=== PATIENT | female | born 1985 | race Caucasian/White ===

== ENCOUNTER 2018-08-30 14:39 | Emergency (ER) | payer MEDICAID ==
[~2018-08-30] VITALS: Ht 162.6 cm; Wt 59.0 kg
[2018-08-30 15:29] LABS: BASOPHILS # (AUTO) 0.1 10^3/uL (0.0-0.1); BASOPHILS % (AUTO) 1 % (0-10); EOSINOPHILS # (AUTO) 0.4 10^3/uL (0.0-0.3); EOSINOPHILS % (AUTO) 3 % (0-10); HEMATOCRIT 43 % (35-52); HEMOGLOBIN 15.3 G/DL (11.5-16.0); LYMPHOCYTES # (AUTO) 2.3 X 10^3 (1.0-4.0); LYMPHOCYTES % (AUTO) 18 % (12-44); MEAN CORPUSCULAR HEMOGLOBIN 30 PG (25-34); MEAN CORPUSCULAR HGB CONC 36 G/DL (32-36); MEAN CORPUSCULAR VOLUME 85 FL (80-99); MEAN PLATELET VOLUME 9.6 FL (7.4-10.4); MONOCYTES # (AUTO) 1.3 X 10^3 (0.0-1.0); MONOCYTES % (AUTO) 10 % (0-12); NEUTROPHILS # (AUTO) 8.6 X 10^3 (1.8-7.8); NEUTROPHILS % (AUTO) 68 % (42-75); PLATELET COUNT 463 10^3/uL (130-400); RED CELL DISTRIBUTION WIDTH 14.8 % (10.0-14.5); WHITE BLOOD COUNT 12.6 10^3/uL (4.3-11.0)
[2018-08-30 15:51] LABS: ALANINE AMINOTRANSFERASE 61 U/L (0-55); ALBUMIN 4.5 GM/DL (3.2-4.5); ALKALINE PHOSPHATASE 89 U/L (40-136); BILIRUBIN,TOTAL 0.5 MG/DL (0.1-1.0); BUN/CREATININE RATIO 13; CALCIUM 10.5 MG/DL (8.5-10.1); CARBON DIOXIDE 21 MMOL/L (21-32); CHLORIDE 103 MMOL/L (98-107); GFR ESTIMATED > 60; GLUCOSE 119 MG/DL (70-105); POTASSIUM 3.9 MMOL/L (3.6-5.0); SODIUM 138 MMOL/L (135-145); TOTAL PROTEIN 8.1 GM/DL (6.4-8.2)
[2018-08-30] MEDS ORDERED: GLUCAGON EMERGENCY 1 MG/KIT IV ONE (16:00)
[2018-08-30] MEDS ORDERED: METOCLOPRAMIDE INJ 10 MG/2 ML (REGLAN) IVP ONE (16:00)
[2018-08-30] MEDS ORDERED: fentaNYL INJECTION 100 MCG/2 ML AMP IVP ONE (16:00)
--- NOTE | 2018-08-30 17:05 | ED GI ---
General Chief Complaint: Foreign Body Stated Complaint: PIECE OF STEAK STUCK IN THROAT Nursing Triage Note: STATES SHE HAS A PIECE OF STEAK STUCK IN HER THROAT SINCE NOON. Sepsis Screen: No Definite Risk Source of Information: Patient Exam Limitations: No Limitations History of Present Illness Date Seen by Provider: August 30, 2018 Time Seen by Provider: 15:50 Initial Comments 33-year-old female who presents to the emergency room with complaints of a piece of steak stuck in her throat while eating lunch. She reports that she's had this happen from time to time due to having uwqfj-cibqxp-aafk disease. She reports that she has a history of leukemia is in remission. Timing/Duration: 1-3 Hours Associated Symptoms: Denies Symptoms Allergies and Home Medications Allergies Uncoded Allergies: CHEMO MEDS (Allergy, Unknown, 08/30/18) Patient Home Medication List Home Medication List Reviewed: Yes Review of Systems Review of Systems Constitutional: see HPI; No chills, No fever Gastrointestinal: See HPI, Other (piece of steak stuck in throat.) All Other Systems Reviewed Negative Unless Noted: Yes Past Surjyek-Qljlhm-Hibtdf Hx Past Med/Social Hx: Reviewed Nursing Past Med/Soc Hx Patient Social History Alcohol Use: Denies Use Recreational Drug Use: No Smoking Status: Never a Smoker Recent Foreign Travel: No Contact w/Someone Who Travel: No Recent Infectious Disease Expo: No Past Medical History Surgeries: Yes (BREAST) Respiratory: Yes Cardiac: Yes Hypertension, Irregular Heartbeat Neurological: No Genitourinary: No Gastrointestinal: No Musculoskeletal: Yes Foot Drop, Contracture Endocrine: No Cancer: Yes Leukemia Psychosocial: Yes Sleep Difficulties, Anxiety, Depression Family Medical History Reviewed Nursing Family Hx Physical Exam Vital Signs Vital Signs - First Documented 08/30/18 15:05 Pulse 132 Resp 18 B/P (MAP) 165/83 (110) Pulse Ox 94 O2 Delivery Room Air Capillary Refill : Less Than 3 Seconds Height/Weight/BMI Height: 5'4.00" Weight: 130lbs. oz. 58.743767us; BMI Method:Stated General Appearance: WD/WN, no apparent distress Respiratory: chest non-tender, lungs clear, normal breath sounds, no respiratory distress, no accessory muscle use Cardiovascular: normal peripheral pulses, regular rate, rhythm, no edema, no gallop, no JVD, no murmur Gastrointestinal: normal bowel sounds, non tender, soft, no organomegaly, no pulsatile mass Extremities: normal capillary refill Neurologic/Psychiatric: alert, normal mood/affect, oriented x 3 Skin: normal color, warm/dry Progress/Results/Core Measures Results/Orders Lab Results Laboratory Tests Test 08/30/18 15:20 Range/Units White Blood Count 12.6 H 4.3-11.0 10^3/uL Red Blood Count 5.09 4.35-5.85 10^6/uL Hemoglobin 15.3 11.5-16.0 G/DL Hematocrit 43 35-52 % Mean Corpuscular Volume 85 80-99 FL Mean Corpuscular Hemoglobin 30 25-34 PG Mean Corpuscular Hemoglobin Concent 36 32-36 G/DL Red Cell Distribution Width 14.8 H 10.0-14.5 % Platelet Count 463 H 130-400 10^3/uL Mean Platelet Volume 9.6 7.4-10.4 FL Neutrophils (%) (Auto) 68 42-75 % Lymphocytes (%) (Auto) 18 12-44 % Monocytes (%) (Auto) 10 0-12 % Eosinophils (%) (Auto) 3 0-10 % Basophils (%) (Auto) 1 0-10 % Neutrophils # (Auto) 8.6 H 1.8-7.8 X 10^3 Lymphocytes # (Auto) 2.3 1.0-4.0 X 10^3 Monocytes # (Auto) 1.3 H 0.0-1.0 X 10^3 Eosinophils # (Auto) 0.4 H 0.0-0.3 10^3/uL Basophils # (Auto) 0.1 0.0-0.1 10^3/uL Sodium Level 138 135-145 MMOL/L Potassium Level 3.9 3.6-5.0 MMOL/L Chloride Level 103 98-107 MMOL/L Carbon Dioxide Level 21 21-32 MMOL/L Anion Gap 14 5-14 MMOL/L Blood Urea Nitrogen 8 7-18 MG/DL Creatinine 0.60 0.60-1.30 MG/DL Estimat Glomerular Filtration Rate > 60 BUN/Creatinine Ratio 13 Glucose Level 119 H 70-105 MG/DL Calcium Level 10.5 H 8.5-10.1 MG/DL Corrected Calcium 10.1 8.5-10.1 MG/DL Total Bilirubin 0.5 0.1-1.0 MG/DL Aspartate Amino Transf (AST/SGOT) 44 H 5-34 U/L Alanine Aminotransferase (ALT/SGPT) 61 H 0-55 U/L Alkaline Phosphatase 89 40-136 U/L Total Protein 8.1 6.4-8.2 GM/DL Albumin 4.5 3.2-4.5 GM/DL My Orders Orders - PHILLY BOBO Comprehensive Metabolic Panel (08/30/18 15:22) Ed Iv/Invasive Line Start (08/30/18 15:22) Cbc With Automated Diff (08/30/18 15:22) Fentanyl Injection (Sublimaze Injection (08/30/18 16:00) Metoclopramide Injection (Reglan Injecti (08/30/18 16:00) Glucagon Emergency Kit (Glucagon Emergen (08/30/18 16:00) Iv Push Certified Surgical Assistant Ed (08/30/18 ) Medications Given in ED Vital Signs/I&O 08/30/18 08/30/18 15:05 17:08 Pulse 132 133 Resp 18 18 B/P (MAP) 165/83 (110) 136/101 (113) Pulse Ox 94 93 O2 Delivery Room Air Room Air Blood Pressure Mean: 110 Progress Progress Note : Time: 17:04 Progress Note I have seen and evaluated the patient. The patient's food bolus went down after medication administration. She agrees with plan of care, plans for discharge, return precautions were given. Departure Impression Primary Impression: Foreign body in esophagus Disposition: 01 HOME, SELF-CARE Condition: Stable/Unchanged Departure-Patient Inst. Decision time for Depature: 17:04 Referrals: NO,LOCAL PHYSICIAN (PCP/Family) Primary Care Physician Patient Instructions: Foreign Body, Swallowed, Adult Add. Discharge Instructions: Be sure to cut her food up very small and shoe appropriately. Follow-up with her primary care provider as needed. Return back to the emergency room for worsening symptoms or concerns as needed. All discharge instructions reviewed with patient and/or family. Voiced understanding. PHILLY BOBO August 30, 2018 17:05
[2018-08-30 17:08] VITALS: BP 136/101
--- NOTE | 2018-08-30 17:08 | NUR ---
HR 133 ON DISCHARGE PATIENT AND MOTHER REPORT THAT IS NORMAL FOR HER. AND WAS B/P WAS 136/101 PATIENT REPORTS THAT IS GOOD FOR HER. DID TAKE HER B/P MEDS TODAY.
== END 2018-08-30 17:12 | disposition home or self-care (01) ==
LOC: EDUNIT# 14:39 → ER 14:41
DX: T18.108A Unspecified foreign body in esophagus causing other injury, initial encounter (principal); I10 Essential (primary) hypertension; F41.9 Anxiety disorder, unspecified; F32.9 Major depressive disorder, single episode, unspecified; Z85.6 Personal history of leukemia; Z88.8 Allergy status to other drugs, medicaments and biological substances
CPT/HCPCS: 36415; 80053; 85025

== ENCOUNTER → 2018-08-30 | Emergency (ER) | payer MEDICAID, OTHER ==
[~2018-08-30] VITALS: Ht 162.6 cm; Wt 59.0 kg
[~2018-08-30] MED LIST: GLUCAGON EMERGENCY 1 MG/KIT IV ONE; NS IV 1000 ML 1,000 ML IV STA
--- NOTE | 2018-08-30 13:36 | NUR ---
unable to assess complete patient history d/t partial airway obstruction by piece of steak lodged in throat.
--- NOTE | 2018-08-30 13:46 | ED General ---
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 She did not spit out the food, she feels like it is still stuck in the back of her throat. She says that she cannot even swallow saliva although she is swallowing saliva during history taking and exam. Her family members are with her, they said that they did not have to do the Heimlich maneuver because she was still moving some air, they were slapping her on her back however. Patient denies additional symptoms. Allergies and Home Medications Allergies Coded Allergies: No Known Drug Allergies (Unverified , 08/30/18) Patient Home Medication List Home Medication List Reviewed: Yes Review of Systems Review of Systems Constitutional: no symptoms reported EENTM: see HPI Respiratory: see HPI Cardiovascular: no symptoms reported Gastrointestinal: no symptoms reported Genitourinary: no symptoms reported Musculoskeletal: no symptoms reported Skin: no symptoms reported Psychiatric/Neurological: No Symptoms Reported Hematologic/Lymphatic: No Symptoms Reported Immunological/Allergic: no symptoms reported Past Rdrxjar-Vnqfby-Nroyha Hx Past Med/Social Hx: Reviewed Nursing Past Med/Soc Hx Patient Social History Recent Foreign Travel: No Contact w/Someone Who Travel: No Physical Exam Vital Signs Capillary Refill : Height, Weight, BMI Height: '" Weight: lbs. oz. kg; BMI Method: General Appearance: No Apparent Distress (sitting in bed, speaking in full sentences, no drooling, no stridor, no respiratory accessory muscle use) HEENT: Pharynx Normal (no foreign body is visualized using a tongue depressor) Neck: Supple Respiratory: Lungs Clear Cardiovascular: Regular Rate, Rhythm Gastrointestinal: Non Tender, Soft Extremity: Other (chronic sclerosing skin changes are noted) Neurologic/Psychiatric: Alert, Other (normal speech) Skin: Warm/Dry Progress/Results/Core Measures Suspected Sepsis SIRS Temperature: Pulse: Respiratory Rate: Blood Pressure / Mean: Results/Orders My Orders Orders - CJ HUMPHREY DO Glucagon Emergency Kit (Glucagon Emergen (08/30/18 14:00) Ns Iv 1000 Ml (Sodium Chloride 0.9%) (08/30/18 13:47) Vital Signs/I&O Capillary Refill : Departure Impression Primary Impression: Choking episode Additional Impression: Obstruction of upper airway due to foreign body Qualified Codes: T17.908A - Unspecified foreign body in respiratory tract, part unspecified causing other injury, initial encounter Disposition: 07 AGAINST MEDICAL ADVICE Condition: Against Medical Advice Departure-Patient Inst. Referrals: NO,LOCAL PHYSICIAN (PCP) Primary Care Physician CJ HUMPHREY DO August 30, 2018 13:46
[2018-08-30 13:50] VITALS: BP 144/100
--- NOTE | 2018-08-30 13:50 | NUR ---
patient demanding to leave at this time, medication list returned to patient per her request prior to copy. unable to update medication list.
--- NOTE | 2018-08-30 13:50 | NUR ---
Entered patient room to irene Eduardo RN for phone call regarding another patient care need. Upon entering room Dr Thomas is in middle of explaining to patient the plan/recommended treatment plan of need to try Glucagon as a course of action here to attempt to make resolution of trying to smooth/relax GI muscle to get the passage of food bolus but would also contact to arrange the back up plan which is place patient in ambulance to [place] where the General surgeon would assess her GI status and could intervene with food bolus removal in Endoscopy. Pt continues to have raised voice with with her mother also intervening reporting "With the prior hospital closure and us not knowing what this place is we could assume you would not have any capability to manage this." explains again that he is making the appropriate "ER" plan as he can not go down pt's throat to retrieve a food bolus that is why shipping pt is being proposed as refusal of Glucagon continued. Pt then became very upset taking off her monitors and sitting up stating " That is it, I am leaving now and going to a real hospital." "I asked for the Valium that always works usually and I will get in a car and be driven elsewhere if it didn't." removes self from room stating they do not understand he is making the plan but he will not not give Valium IV to a possible compromised patient airway and then let them get up and leave not on an ambulance with no medical staff to monitor the airway. He states, "You could not being properly monitored." This RN running for AMA and refusal of Tx form as said to pt if you want to just leave not acepting the treatment plan then sign these forms if you are going to leave. Pt was already standing in room requesting for her medication list that her family does not have. List at desk obtained and returned to patient. Pt and family were asked to please go to registration desk to sign out on leaving. AMA and Refusal of Treatment plan signed. Noted pt and family departing ER they bypassed registration.
--- NOTE | 2018-08-30 13:50 | NUR ---
patient arrived at 1336 staing she had choked on a piece of steak. after origional assessment done by Dr Thomas orders were placed for IV start labs and glucogon to be given. after dr left room patient started asking this RN why Dr would give glucogon, that is for blood sugar? this RN explained glucogon would relax the smooth muscle tissue. patient states pain medication was the only thing that had ever worked before and that she is a hard stick and does not want to be stuck and treated with something that is not guarenteed to work and she will just go somewhere else. this RN told the patient and her family i would go get the Dr so they could voice their concerns. Dr Thomas comes to the room and asks the patient what her concerns are, patient repeats her concerns she had voiced to this RN and Dr Thomas explains again the glucogon is the safest treatment and then we can get you transferred to [place] where there is a GI DR and explains it would be unsafe for him to give her a pain medication to relax her with a partial airway obstruction, at this point the patient stops Dr and says no its valium, they always gave me valium in the past. then states Valium would be sedating and not safe with a partial airway obstruction especially if you are saying you dont want to be transferred via ambulance. patient then states she wants the valium and has been through this before and it is the only thing that will work, and then i will leave and have my mom drive me to [place] to see the GI specialist. again Dr Dhaliwal explains it is unsafe to give the sedating medication with a partial airway obstruction and his preferred treatment would be glucogon and an transfer to [place] via ambulance.
== END | disposition left against medical advice (07) ==
LOC: ER FS 13:36
DX: T17.908A Unspecified foreign body in respiratory tract, part unspecified causing other injury, initial encounter (principal); Z85.6 Personal history of leukemia; Z94.81 Bone marrow transplant status
CPT/HCPCS: 99282

== ENCOUNTER 2018-11-16 18:52 | Emergency (ER) | payer MEDICAID ==
[~2018-11-16] VITALS: Ht 162.6 cm; Wt 58.1 kg
--- OUTSIDE RECORDS SUMMARY | 2018-11-16 18:57 | XMS REPORT | Continuity of Care Document ---
Author Organization Unknown Address Unknown Phone Unavailable Allergies Active Description Code Type Severity Reaction Onset Reported/Identified Relationship to Patient Clinical Status Yes CHEMO MEDS CHEMO MEDS Unknown N/A 08/30/2018 Yes No Known Drug Allergies [id number] Drug Allergy Unknown N/A 08/30/2018 Medications There is no data. Problems Date Dx Coded Attending Type Code Diagnosis Diagnosed By 08/30/2018 PHILLY BOBO Ot F32.9 MAJOR DEPRESSIVE DISORDER, SINGLE EPISOD 08/30/2018 PHILLY BOBO Ot F41.9 ANXIETY DISORDER, UNSPECIFIED 08/30/2018 PHILLY BOBO Ot I10 ESSENTIAL (PRIMARY) HYPERTENSION 08/30/2018 PHILLY BOBO Ot T18.108A UNSP FOREIGN BODY IN ESOPHAGUS CAUSING O 08/30/2018 PHILLY BOBO Ot Z85.6 PERSONAL HISTORY OF LEUKEMIA 08/30/2018 PHILLY BOBO Ot Z88.8 ALLERGY STATUS TO OTH DRUG/MEDS/BIOL SUB 09/02/2018 PHILLY BOBO Ot F32.9 MAJOR DEPRESSIVE DISORDER, SINGLE EPISOD 09/02/2018 PHILLY BOBO Ot F41.9 ANXIETY DISORDER, UNSPECIFIED 09/02/2018 PHILLY BOBO Ot I10 ESSENTIAL (PRIMARY) HYPERTENSION 09/02/2018 PHILLY BOBO Ot T18.108A UNSP FOREIGN BODY IN ESOPHAGUS CAUSING O 09/02/2018 PHILLY BOBO Ot Z85.6 PERSONAL HISTORY OF LEUKEMIA 09/02/2018 PHILLY BOBO Ot Z88.8 ALLERGY STATUS TO OTH DRUG/MEDS/BIOL SUB 09/17/2018 CJ HUMPHREY DO T Ot T17.908A UNSP FB IN RESP TRACT, PART UNSP CAUSING 09/17/2018 CJ HUMPHREY DO T Ot Z85.6 PERSONAL HISTORY OF LEUKEMIA 09/17/2018 CJ HUMPHREY DO Ot Z94.81 BONE MARROW TRANSPLANT STATUS Procedures There is no data. Results Test Result Range Complete blood count (CBC) with automated white blood cell (WBC) differential - 08/30/18 15:20 Blood leukocytes automated count (number/volume) 12.6 10*3/uL 4.3-11.0 Blood erythrocytes automated count (number/volume) 5.09 10*6/uL 4.35-5.85 Venous blood hemoglobin measurement (mass/volume) 15.3 g/dL 11.5-16.0 Blood hematocrit (volume fraction) 43 % 35-52 Automated erythrocyte mean corpuscular volume 85 [foz_us] 80-99 Automated erythrocyte mean corpuscular hemoglobin (mass per erythrocyte) 30 pg 25-34 Automated erythrocyte mean corpuscular hemoglobin concentration measurement (mass/volume) 36 g/dL 32-36 Automated erythrocyte distribution width ratio 14.8 % 10.0- 14.5 Automated blood platelet count (count/volume) 463 10*3/uL 130-400 Automated blood platelet mean volume measurement 9.6 [foz_us] 7.4-10.4 Automated blood neutrophils/100 leukocytes 68 % 42-75 Automated blood lymphocytes/100 leukocytes 18 % 12-44 Blood monocytes/100 leukocytes 10 % 0-12 Automated blood eosinophils/100 leukocytes 3 % 0-10 Automated blood basophils/100 leukocytes 1 % 0-10 Blood neutrophils automated count (number/volume) 8.6 10*3 1.8-7.8 Blood lymphocytes automated count (number/volume) 2.3 10*3 1.0-4.0 Blood monocytes automated count (number/volume) 1.3 10*3 0.0- 1.0 Automated eosinophil count 0.4 10*3/uL 0.0-0.3 Automated blood basophil count (count/volume) 0.1 10*3/uL 0.0-0.1 Comprehensive metabolic panel - 08/30/18 15:20 Serum or plasma sodium measurement (moles/volume) 138 mmol/L 135-145 Serum or plasma potassium measurement (moles/volume) 3.9 mmol/L 3.6-5.0 Serum or plasma chloride measurement (moles/volume) 103 mmol/L 98-107 Carbon dioxide 21 mmol/L 21-32 Serum or plasma anion gap determination (moles/volume) 14 mmol/L 5-14 Serum or plasma urea nitrogen measurement (mass/volume) 8 mg/dL 7-18 Serum or plasma creatinine measurement (mass/volume) 0.60 mg/dL 0.60-1.30 Serum or plasma urea nitrogen/creatinine mass ratio 13 NRG Serum or plasma creatinine measurement with calculation of estimated glomerular filtration rate > NRG Serum or plasma glucose measurement (mass/volume) 119 mg/dL 70-105 Serum or plasma calcium measurement (mass/volume) 10.5 mg/dL 8.5-10.1 Serum or plasma total bilirubin measurement (mass/volume) 0.5 mg/dL 0.1-1.0 Serum or plasma alkaline phosphatase measurement (enzymatic activity/volume) 89 U/L 40-136 Serum or plasma aspartate aminotransferase measurement (enzymatic activity/volume) 44 U/L 5-34 Serum or plasma alanine aminotransferase measurement (enzymatic activity/volume) 61 U/L 0-55 Serum or plasma protein measurement (mass/volume) 8.1 g/dL 6.4-8.2 Serum or plasma albumin measurement (mass/volume) 4.5 g/dL 3.2-4.5 CALCIUM CORRECTED 10.1 mg/dL 8.5-10.1 Encounters ACCT No. Visit Date/Time Discharge Status Pt. Type Provider Facility Loc./Unit Complaint [id number] 08/30/2018 14:41:00 08/30/2018 17:12:00 DIS Emergency JIHANANANDIS [facility] ER PIECE OF STEAK STUCK IN THROAT [id number] 08/30/2018 13:36:00 08/30/2018 13:50:00 DIS Emergency CJ HUMPHREY DO [facility] ER FS CHOKING [id number] 11/16/2018 18:53:00 ACT Emergency STAR HOLBROOK DO [facility] ER FS HIGH BP, CHEST PAIN, SOB
--- NOTE | 2018-11-16 19:12 | ED Chest Pain ---
General Stated Complaint: HIGH BP, CHEST PAIN, SOB Source: patient, RN notes reviewed Exam Limitations: no limitations History of Present Illness Date Seen by Provider: Nov 16, 2018 Time Seen by Provider: 19:12 Initial Comments Patient presents c/ c/o chest pain, ROOT, and KING today. Reports being under a great deal of stress secondary to the recent of her Mother. Rates her KING @ 5/10. It is generalized. Describes her chest discomfort as burning. Denies any associated N/V. or diaphoresis. Does feel SOA c/ exertion. Timing/Duration: 24 hours, constant Severity/Quality: moderate, burning Location: substernal Radiation: no radiation Activities at Onset: emotional stress Prior CP/Workup: no prior chest pain Modifying Factors: worse with exercise; improves with rest ASA po CHILD CARE ASSOCIATE TEACHER: No NTG SL CHILD CARE ASSOCIATE TEACHER: No Associated Symptoms: denies symptoms (x/ as noted.), headache (generalized), shortness of breath (c/ exertion) Allergies and Home Medications Allergies Uncoded Allergies: CHEMO MEDS (Allergy, Unknown, 08/30/18) Home Medications Labetalol HCl 100 Mg Tablet, 100 MG PO BID Prescribed by: STAR HOLBROOK on 11/16/182039 Patient Home Medication List Home Medication List Reviewed: Yes Review of Systems Review of Systems Constitutional: see HPI Respiratory: See HPI, SOA With Exertion Cardiovascular: See HPI, Chest Pain Psychiatric/Neurological: See HPI, Headache, Other (increased stress) All Other Systems Reviewed Negative Unless Noted: Yes (Negative excepted noted.) Past Ablddtv-Pdiuii-Rgpgps Hx Patient Social History Recent Foreign Travel: No Contact w/Someone Who Travel: No Past Medical History Surgeries: Yes (BREAST) Respiratory: Yes Cardiac: Yes Hypertension, Irregular Heartbeat Neurological: No Genitourinary: No Gastrointestinal: No Musculoskeletal: Yes Foot Drop, Contracture Endocrine: No Cancer: Yes Leukemia Psychosocial: Yes Sleep Difficulties, Anxiety, Depression Physical Exam Vital Signs Vital Signs - First Documented 11/16/18 18:55 Temp 98.3 Pulse 124 Resp 26 B/P (MAP) 185/100 (128) Pulse Ox 95 O2 Delivery Room Air Capillary Refill : Height, Weight, BMI Height: 5'4.00" Weight: 130lbs. oz. 58.009035yx; BMI Method:Stated General Appearance: No Apparent Distress, WD/WN Respiratory: No Respiratory Distress Cardiovascular: Tachycardia Rectal: Deferred Neurologic/Psychiatric: Alert, Oriented x3, Depressed Affect Skin: Warm/Dry Progress/Results/Core Measures Results/Orders Lab Results Laboratory Tests Test 11/16/18 19:05 11/16/18 19:25 Range/Units White Blood Count 11.6 H 4.3-11.0 10^3/uL Red Blood Count 5.41 4.35-5.85 10^6/uL Hemoglobin 15.9 11.5-16.0 G/DL Hematocrit 48 35-52 % Mean Corpuscular Volume 89 80-99 FL Mean Corpuscular Hemoglobin 29 25-34 PG Mean Corpuscular Hemoglobin Concent 33 32-36 G/DL Red Cell Distribution Width 13.3 10.0-14.5 % Platelet Count 464 H 130-400 10^3/uL Mean Platelet Volume 9.4 7.4-10.4 FL Neutrophils (%) (Auto) 48 42-75 % Lymphocytes (%) (Auto) 34 12-44 % Monocytes (%) (Auto) 13 H 0-12 % Eosinophils (%) (Auto) 4 0-10 % Basophils (%) (Auto) 1 0-10 % Neutrophils # (Auto) 5.6 1.8-7.8 X 10^3 Lymphocytes # (Auto) 3.9 1.0-4.0 X 10^3 Monocytes # (Auto) 1.5 H 0.0-1.0 X 10^3 Eosinophils # (Auto) 0.5 H 0.0-0.3 10^3/uL Basophils # (Auto) 0.1 0.0-0.1 10^3/uL D-Dimer 0.43 0.00-0.49 UG/ML Sodium Level 136 135-145 MMOL/L Potassium Level 3.8 3.6-5.0 MMOL/L Chloride Level 96 L 98-107 MMOL/L Carbon Dioxide Level 22 21-32 MMOL/L Anion Gap 18 H 5-14 MMOL/L Blood Urea Nitrogen 8 7-18 MG/DL Creatinine 0.33 L 0.60-1.30 MG/DL Estimat Glomerular Filtration Rate > 60 BUN/Creatinine Ratio 24 Glucose Level 148 H 70-105 MG/DL Calcium Level 10.0 8.5-10.1 MG/DL Corrected Calcium 9.8 8.5-10.1 MG/DL Magnesium Level 2.0 1.8-2.4 MG/DL Total Bilirubin 0.4 0.1-1.0 MG/DL Aspartate Amino Transf (AST/SGOT) 40 H 5-34 U/L Alanine Aminotransferase (ALT/SGPT) 45 0-55 U/L Alkaline Phosphatase 93 40-136 U/L Troponin I < 0.30 <0.30 NG/ML Pro-B-Type Natriuretic Peptide 43.2 <75.0 PG/ML Total Protein 7.9 6.4-8.2 GM/DL Albumin 4.2 3.2-4.5 GM/DL Lipase 14 8-78 U/L Urine Color YELLOW Urine Clarity CLEAR Urine pH 7.0 5-9 Urine Specific Strang <1.005 1.016-1.022 Urine Protein NEGATIVE NEGATIVE Urine Glucose (UA) NEGATIVE NEGATIVE Urine Ketones NEGATIVE NEGATIVE Urine Nitrite NEGATIVE NEGATIVE Urine Bilirubin NEGATIVE NEGATIVE Urine Urobilinogen 0.2 NORMAL MG/DL Urine Leukocyte Esterase NEGATIVE NEGATIVE Urine RBC (Auto) NEGATIVE NEGATIVE Urine RBC NONE /HPF Urine WBC NONE /HPF Urine Squamous Epithelial Cells 5-10 /HPF Urine Crystals NONE /LPF Urine Bacteria NONE /HPF Urine Casts NONE /LPF Urine Mucus NEGATIVE /LPF Urine Culture Indicated NO Urine Test NEGATIVE Urine Opiates Screen NEGATIVE NEGATIVE Urine Oxycodone Screen NEGATIVE NEGATIVE Urine Methadone Screen NEGATIVE NEGATIVE Urine Propoxyphene Screen NEGATIVE NEGATIVE Urine Barbiturates Screen NEGATIVE NEGATIVE Ur Tricyclic Antidepressants Screen NEGATIVE NEGATIVE Urine Phencyclidine Screen NEGATIVE NEGATIVE Urine Amphetamines Screen NEGATIVE NEGATIVE Urine Methamphetamines Screen NEGATIVE NEGATIVE Urine Benzodiazepines Screen NEGATIVE NEGATIVE Urine Cocaine Screen NEGATIVE NEGATIVE Urine Cannabinoids Screen NEGATIVE NEGATIVE My Orders Orders - STAR HOLBROOK DO Ed Iv/Invasive Line Start (11/16/18 19:12) Ekg Tracing (11/16/18 19:12) Cbc With Automated Diff (11/16/18 19:12) Comprehensive Metabolic Panel (11/16/18 19:12) Fibrin Degradation Products (11/16/18 19:12) Drug Screen Stat (Urine) (11/16/18 19:12) Hcg,Qualitative Urine (11/16/18 19:12) Lipase (11/16/18 19:12) Magnesium (11/16/18 19:12) Troponin I (11/16/18 19:12) Ua Culture If Indicated (11/16/18 19:12) Probnp Fs (11/16/18 19:12) Chest Pa/Lat (2 View) (11/16/18 19:12) Thyroid Stimulating Hormone (11/16/18 19:15) Labetalol Injection (Normodyne Injection (11/16/18 19:45) Labetalol Tablet (Normodyne Tablet) (11/16/18 20:45) Medications Given in ED Current Medications Medications Dose Ordered Sig/Anna Route Start Time Stop Time Status Last Admin Dose Admin Labetalol HCl 20 mg ONCE ONCE IV 11/16/18 19:45 11/16/18 19:46 DC 11/16/18 19:47 20 MG Labetalol HCl 100 mg ONCE ONCE PO 11/16/18 20:45 11/16/18 20:46 11/16/18 20:41 100 MG Vital Signs/I&O 11/16/18 18:55 Temp 98.3 Pulse 124 Resp 26 B/P (MAP) 185/100 (128) Pulse Ox 95 O2 Delivery Room Air Progress Progress Note : Progress Note Noted to be very hypertensive and tachycardic upon arrival. States she feels much improved p/ the Labetolol, which brought both her BP and pulse down nicely. Work up was otherwise largely unremarkable. Initial ECG Rhythm: S.Tach Initial ECG Impression: Nonspecific Changes Initial ECG Comparisson: No Previous ECG Available Diagnostic Imaging Diagonstic Imaging: Xray Plain Films/CT/US/NM/MRI: chest (nothing acute) Departure Impression Primary Impression: Hypertensive urgency Additional Impressions: Headache Anxiety as acute reaction to exceptional stress Disposition: 01 HOME, SELF-CARE Condition: Improved Departure-Patient Inst. Referrals: GLEN JONAS APRN (PCP) Primary Care Physician Patient Instructions: Chest Pain That Is Not Caused by the Heart (DC), High Blood Pressure in Adults, Headache, Adult, Stress Add. Discharge Instructions: KEEP YOUR APPOINTMENT ON 11/19/18 WITH GLEN SCHEDULED. BEGIN THE NEW BLOOD PRESSURE MEDICATION IN THE AM, 11/17. CONTINUE YOUR OTHER MEDS DIRECTED. Scripts Labetalol HCl (Labetalol HCl) 100 Mg Tablet 100 MG PO BID for BLOOD PRESSURE for 30 Days, #60 TAB 2 Refills Prov: STAR HOLBROOK DO 11/16/18 STAR HOLBROOK DO Nov 16, 2018 19:12
[2018-11-16 19:23] LABS: WHITE BLOOD COUNT 11.6 10^3/uL (4.3-11.0)
[2018-11-16 19:24] LABS: BASOPHILS # (AUTO) 0.1 10^3/uL (0.0-0.1); BASOPHILS % (AUTO) 1 % (0-10); EOSINOPHILS # (AUTO) 0.5 10^3/uL (0.0-0.3); EOSINOPHILS % (AUTO) 4 % (0-10); HEMATOCRIT 48 % (35-52); HEMOGLOBIN 15.9 G/DL (11.5-16.0); LYMPHOCYTES # (AUTO) 3.9 X 10^3 (1.0-4.0); LYMPHOCYTES % (AUTO) 34 % (12-44); MEAN CORPUSCULAR HEMOGLOBIN 29 PG (25-34); MEAN CORPUSCULAR HGB CONC 33 G/DL (32-36); MEAN CORPUSCULAR VOLUME 89 FL (80-99); MEAN PLATELET VOLUME 9.4 FL (7.4-10.4); MONOCYTES # (AUTO) 1.5 X 10^3 (0.0-1.0); MONOCYTES % (AUTO) 13 % (0-12); NEUTROPHILS # (AUTO) 5.6 X 10^3 (1.8-7.8); NEUTROPHILS % (AUTO) 48 % (42-75); PLATELET COUNT 464 10^3/uL (130-400); RED CELL DISTRIBUTION WIDTH 13.3 % (10.0-14.5)
[2018-11-16 19:45] LABS: BILIRUBIN,URINE NEGATIVE (NEGATIVE); CLARITY,URINE CLEAR; COLOR,URINE YELLOW; GLUCOSE, URINE (UA) NEGATIVE (NEGATIVE); KETONES,URINE NEGATIVE (NEGATIVE); LEUKOCYTE ESTERASE ,URINE NEGATIVE (NEGATIVE); NITRITE,URINE NEGATIVE (NEGATIVE); PROTEIN,URINE NEGATIVE (NEGATIVE); UROBILINOGEN,URINE 0.2 MG/DL (NORMAL)
[2018-11-16 19:45] LABS: POTASSIUM 3.8 MMOL/L (3.6-5.0); SODIUM 136 MMOL/L (135-145)
[2018-11-16] MEDS ORDERED: LABETALOL HCL 20 MG/4 ML VIAL IV ONE (19:45)
[2018-11-16 19:46] LABS: ALANINE AMINOTRANSFERASE 45 U/L (0-55); ALBUMIN 4.2 GM/DL (3.2-4.5); ALKALINE PHOSPHATASE 93 U/L (40-136); BILIRUBIN,TOTAL 0.4 MG/DL (0.1-1.0); BUN/CREATININE RATIO 24; CARBON DIOXIDE 22 MMOL/L (21-32); CHLORIDE 96 MMOL/L (98-107); CREATININE SERUM 0.33 MG/DL (0.60-1.30); GFR ESTIMATED > 60; GLUCOSE 148 MG/DL (70-105); LIPASE 14 U/L (8-78); TOTAL PROTEIN 7.9 GM/DL (6.4-8.2)
[2018-11-16 19:51] LABS: AMPHETAMINE SCREEN, URINE NEGATIVE (NEGATIVE); BARBITURATE SCREEN URINE NEGATIVE (NEGATIVE); BENZODIAZEPINES SCREEN URINE NEGATIVE (NEGATIVE); CANNABINOID SCREEN, URINE NEGATIVE (NEGATIVE); COCAINE SCREEN URINE NEGATIVE (NEGATIVE); METHADONE STAT NEGATIVE (NEGATIVE); METHAMPHETAMINE SCREEN URINE S NEGATIVE (NEGATIVE); OPIATE SCREEN URINE NEGATIVE (NEGATIVE); OXYCODONE STAT NEGATIVE (NEGATIVE); PROPOXYPHENE STAT NEGATIVE (NEGATIVE); TRICYCLIC ANTIDEPRESSANTS SCRE NEGATIVE (NEGATIVE)
--- NOTE | 2018-11-16 20:22 | Diagnostic Imaging Report ---
INDICATION: Hypertension, shortness of air. Compared 11/16/2018 FINDINGS: The heart size is mildly enlarged but no gross overdistention of the vascularity. Clear lungs most confidently visualized in the lateral view, in the frontal view the lung base show some density owing to breast soft tissue attenuation artifact. No free air, no obscuration of the heart borders or diaphragms. IMPRESSION: Borderline cardiomegaly but no failure pattern, clear lungs with no acute pleural pathology. Dictated by: Dictated on workstation # [id number]
[2018-11-16] MEDS ORDERED: LABE100T6 PO (20:40)
[2018-11-16] MEDS ORDERED: LABETALOL 200 MG (NORMODYNE) TAB PO ONE (20:45)
[2018-11-16 20:46] VITALS: BP 138/89
== END 2018-11-16 20:47 | disposition home or self-care (01) ==
LOC: EDUNIT# 18:52 → ER FS 18:53
DX: I16.0 Hypertensive urgency (principal); F43.0 Acute stress reaction; F41.9 Anxiety disorder, unspecified; R51 Headache; I10 Essential (primary) hypertension; F32.9 Major depressive disorder, single episode, unspecified; Z88.8 Allergy status to other drugs, medicaments and biological substances; Z85.6 Personal history of leukemia
CPT/HCPCS: 36415; 71046; 80053; 80306; 81000; 83690; 83735; 83880; 84443; 84484; 84703; 85025; 85379; 93005

== ENCOUNTER 2019-04-29 14:51 | Inpatient (IN) | payer MEDICAID ==
[~2019-04-29] VITALS: Ht 162.6 cm; Wt 58.8 kg
[2019-04-29] VITALS (7 sets, daily range): BP systolic 112–171; BP diastolic 66–112
[~2019-04-29 14:51] MED LIST changes: -GLUCAGON EMERGENCY 1 MG/KIT IV ONE; +LABE100T6 PO; -NS IV 1000 ML 1,000 ML IV STA
[2019-04-29] MEDS ORDERED: VANCOMYCIN INJECTION 1,000 MG in NS (IVPB) 250 ML IV ONE (15:00)
[2019-04-29] MEDS ORDERED: CEFEPIME INJECTION 1,000 MG in WATER (STERILE) FOR INJECTION 10 ML IV ONE (15:00)
--- NOTE | 2019-04-29 15:10 | ED Respiratory ---
General Stated Complaint: SOB Source: patient, EMS Exam Limitations: no limitations (BENJIE CAMPOS) History of Present Illness Date Seen by Provider: Apr 29, 2019 Time Seen by Provider: 14:45 Initial Comments Patient presents to ER by EMS from home with chief complaint of shortness of breath for the past several days progressively getting worse. She is dependent on oxygen since March because of decreased lung capacity. She has a appointment to follow-up with her first fly winder in 2 weeks. EMS reported they heard wheezing so gave her a DuoNeb and she said she did get some benefit from this. She does not use albuterol or DuoNeb at baseline. She does not smoke or have a history of smoking or COPD. 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 She is not on any chemotherapy or anti-immunologic's. She follows with Dr. Jonas locally. She has her oncologist at [facility] Dr. Mercado. She's had subjective fever and cough nonpr oductive. She was at her primary office 4 days ago and they heard some wheezing but did not start her on anything at that time. She did steroids about a week prior to that. No previous heart history (BENJIE CAMPOS) Allergies and Home Medications Allergies Uncoded Allergies: CHEMO MEDS (Allergy, Unknown, 08/30/18) Home Medications Labetalol HCl 100 Mg Tablet, 100 MG PO BID Prescribed by: STAR HOLBROOK on 11/16/182039 Patient Home Medication List Home Medication List Reviewed: Yes (BENJIE CAMPOS) Review of Systems Review of Systems Constitutional: chills, fever (subjective), malaise, weakness EENTM: No ear discharge, No ear pain Respiratory: cough; No phlegm; short of breath, wheezing Cardiovascular: No chest pain, No edema Gastrointestinal: No abdominal pain, No constipation, No diarrhea; nausea, vomiting Genitourinary: No discharge, No dysuria Musculoskeletal: see HPI; No back pain, No joint pain Skin: pruritus, rash Psychiatric/Neurological: Headache, Numbness, Paresthesia (BENJIE CAMPOS) All Other Systems Reviewed Negative Unless Noted: Yes (BENJIE CAMPOS) Past Qirvmtg-Eqbtst-Ulmteb Hx Patient Social History Alcohol Use: Denies Use Recreational Drug Use: No Smoking Status: Never a Smoker 2nd Hand Smoke Exposure: No Recent Foreign Travel: No Recent Hopitalizations: No (BENJIE CAMPOS) Seasonal Allergies Seasonal Allergies: No (BENJIE CAMPOS) Past Medical History Surgeries: Yes (BREAST) Respiratory: Yes Cardiac: Yes Hypertension, Irregular Heartbeat Neurological: No Genitourinary: No Gastrointestinal: No Musculoskeletal: Yes Foot Drop, Contracture Endocrine: No HEENT: No Cancer: Yes Leukemia Psychosocial: Yes Sleep Difficulties, Anxiety, Depression Integumentary: No Blood Disorders: No (BENJIE CAMPOS) Physical Exam Vital Signs - First Documented 04/29/19 14:51 Temp 37.4 Pulse 139 Resp 18 B/P (MAP) 165/106 (125) Pulse Ox 96 O2 Delivery Nasal Cannula O2 Flow Rate 3.00 (VALERIA FARIAS DO) Capillary Refill : (BENJIE CAMPOS) Height: 5'4.00" Weight: 128lbs. oz. 58.238586bg; BMI Method:Stated General Appearance: WD/WN, no apparent distress Eyes: Bilateral Eye Normal Inspection, Bilateral Eye PERRL, Bilateral Eye EOMI HEENT: PERRL/EOMI, normal ENT inspection, TMs normal, pharynx normal Neck: non-tender, full range of motion, supple, normal inspection Respiratory: chest non-tender, respiratory distress (mod), decreased breath sounds, accessory muscle use (rr 30) Cardiovascular: normal peripheral pulses, regular rate, rhythm Gastrointestinal: normal bowel sounds, non tender, soft Extremities: normal inspection, no pedal edema Neurologic/Psychiatric: alert, normal mood/affect, oriented x 3 Skin: normal color, warm/dry (BENJIE CAMPOS) Focused Exam Sepsis Stage: Sepsis Possible Source: Pulmonary (BENJIE CAMPOS) Lactate Level 04/29/19 16:40: Lactic Acid Level 0.99 (VALERIA FARIAS DO) Time of Focused Exam: 18:25 Respiratory: Lungs Clear, No Accessory Muscle Use, Respiratory Distress (mild- mod) Cardiovascular: Regular Rate, Rhythm, No Murmur, Normal Peripheral Pulses, Tachycardia Capillary Refill: Less Than 3 Seconds Peripheral Pulses: 2+ Radial Pulses (R), 2+ Radial Pulses (L) Skin: normal color, warm/dry (BENJIE CAMPOS) Lactic Acid Level Laboratory Tests Test 04/29/19 16:40 Lactic Acid Level 0.99 MMOL/L (0.50-2.00) (VALERIA FARIAS DO) Within 3hrs of presentation: Admin fluids, Admin ABX, Blood cultures prior to ABX's, Focus exam, Lactate level (BENJIE CAMPOS) Progress/Results/Core Measures Suspected Sepsis Recent Fever Within 48 Hours: Yes Infection Criteria Present: Suspected New Infection New/Unexplained Altered Menta: No Within 3hrs of presentation: Admin fluids, Admin ABX, Blood cultures prior to ABX's, Focus exam, Lactate level, Vasopressin therapy SIRS Temperature: Pulse: Respiratory Rate: Laboratory Tests 04/29/19 16:19: White Blood Count 22.7H Blood Pressure / Mean: 04/29/19 16:40: Lactic Acid Level 0.99 Laboratory Tests 04/29/19 16:19: Creatinine 0.31L, Platelet Count 378, Total Bilirubin 0.4 04/29/19 16:40: INR Comment 1.0 (BENJIE CAMPOS) Results/Orders Lab Results Laboratory Tests Test 04/29/19 15:10 04/29/19 16:19 04/29/19 16:40 Range/Units Blood Gas Puncture Site RT RADIAL Blood Gas Patient Temperature 38.0 C Arterial Blood pH 7.47 H 7.37-7.43 Arterial Blood Partial Pressure CO2 40 35-45 MMHG Arterial Blood Partial Pressure O2 73 L 79-93 MMHG Arterial Blood HCO3 29 H 23-27 MMOL/L Arterial Blood Total CO2 30.3 21.0-31.0 MMOL/L Arterial Blood Oxygen Saturation 95 94-100 % Arterial Blood Base Excess 5.0 H -2.5-2.5 MMOL/L Dieter Test OK Blood Gas Ventilator Setting NO Blood Gas Inspired Oxygen 3 L White Blood Count 22.7 H 4.3-11.0 10^3/uL Red Blood Count 4.90 4.35-5.85 10^6/uL Hemoglobin 14.5 11.5-16.0 G/DL Hematocrit 43 35-52 % Mean Corpuscular Volume 89 80-99 FL Mean Corpuscular Hemoglobin 30 25-34 PG Mean Corpuscular Hemoglobin Concent 33 32-36 G/DL Red Cell Distribution Width 13.9 10.0-14.5 % Platelet Count 378 130-400 10^3/uL Mean Platelet Volume 9.6 7.4-10.4 FL Neutrophils (%) (Auto) 76 H 42-75 % Lymphocytes (%) (Auto) 14 12-44 % Monocytes (%) (Auto) 8 0-12 % Eosinophils (%) (Auto) 1 0-10 % Basophils (%) (Auto) 1 0-10 % Neutrophils # (Auto) 17.3 H 1.8-7.8 X 10^3 Lymphocytes # (Auto) 3.1 1.0-4.0 X 10^3 Monocytes # (Auto) 1.8 H 0.0-1.0 X 10^3 Eosinophils # (Auto) 0.1 0.0-0.3 10^3/uL Basophils # (Auto) 0.1 0.0-0.1 10^3/uL Neutrophils % (Manual) 66 % Lymphocytes % (Manual) 19 % Monocytes % (Manual) 6 % Eosinophils % (Manual) 2 % Basophils % (Manual) 0 % Myelocytes % 1 % Band Neutrophils 6 % Sodium Level 134 L 135-145 MMOL/L Potassium Level 4.0 3.6-5.0 MMOL/L Chloride Level 98 98-107 MMOL/L Carbon Dioxide Level 23 21-32 MMOL/L Anion Gap 13 5-14 MMOL/L Blood Urea Nitrogen 6 L 7-18 MG/DL Creatinine 0.31 L 0.60-1.30 MG/DL Estimat Glomerular Filtration Rate > 60 BUN/Creatinine Ratio 19 Glucose Level 134 H 70-105 MG/DL Calcium Level 9.4 8.5-10.1 MG/DL Corrected Calcium 9.3 8.5-10.1 MG/DL Total Bilirubin 0.4 0.1-1.0 MG/DL Aspartate Amino Transf (AST/SGOT) 41 H 5-34 U/L Alanine Aminotransferase (ALT/SGPT) 61 H 0-55 U/L Alkaline Phosphatase 94 40-136 U/L Total Protein 8.0 6.4-8.2 GM/DL Albumin 4.1 3.2-4.5 GM/DL Prothrombin Time 13.7 12.2-14.7 SEC INR Comment 1.0 0.8-1.4 Activated Partial Thromboplast Time 31 24-35 SEC Lactic Acid Level 0.99 0.50-2.00 MMOL/L (VALERIA FARIAS DO) Micro Results Microbiology 04/29/19 Influenza Types A,B Antigen (PONCHO) - Final, Complete (VALERIA FARIAS DO) Medications Given in ED Current Medications Medications Dose Ordered Sig/Anna Route Start Time Stop Time Status Last Admin Dose Admin Cefepime HCl 1000 mg/Sterile Water 10 ml @ 200 mls/hr ONCE ONCE IV 04/29/19 15:00 04/29/19 15:02 DC 04/29/19 17:02 200 MLS/HR Ondansetron HCl 4 mg ONCE ONCE IVP 04/29/19 16:45 04/29/19 16:46 DC 04/29/19 16:47 4 MG Vancomycin HCl 1000 mg/Sodium Chloride 250 ml @ 250 mls/hr ONCE ONCE IV 04/29/19 15:00 04/29/19 15:59 DC 04/29/19 17:02 250 MLS/HR (VALERIA FARIAS DO) Vital Signs/I&O 04/29/19 04/29/19 14:51 14:56 Temp 37.4 Pulse 139 Resp 18 B/P (MAP) 165/106 (125) Pulse Ox 96 96 O2 Delivery Nasal Cannula Nasal Cannula O2 Flow Rate 3.00 3.00 (VALERIA FARIAS DO) Vital Signs/I&O Capillary Refill : (BENJIE CAMPOS) Progress Note : Time: 16:56 Progress Note Patient was difficult to get an IV started in because of 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 We did finally get a second good IV and now the fluids her flowing in her at 1 L which is just about 20 mL/kg. Her tachycardia has improved some down to the 120s from 130s. Blood pressure is still good. Chest x-ray doesn't reveal anything yet however she did have improvement on the DuoNeb from EMS. ABG demonstrates hypoxia so returned her up to 4 L per nasal cannula and her sats stayed in the upper 90s. We started with cefepime and vancomycin. She has good kidney function. If necessary and a d- dimer does not rule out a pulmonary embolism we will get a CT angiogram of her chest. At this point is pneumonia possible PE or acute on chronic respiratory disease secondary to her underlying pulmonary disease. (BENJIE CAMPOS) Progress Note : Progress Note 18:35: I assumed care of this patient from Dr. Campos at shift turnover. At that time, arrangements are made for patient to be transferred to [place] [facility]. Patient is resting comfortably and waiting on transfer. I did reassess the patient and she did request additional medication for nausea. Zofran is ordered. 19:45: Patient currently feeling improved. Vital signs are unchanged and she is stable although continues to be tachycardic. Ambulance crew is present and currently loading patient into unit for transfer. No acute events since shift turnover. (VALERIA FARIAS DO) ECG Initial ECG Impression Date: Apr 29, 2019 Initial ECG Impression Time: 15:16 Initial ECG Rate: 131 Initial ECG Rhythm: S.Tach Initial ECG Intervals: Normal Initial ECG Impression: Normal Comment Sinus tachycardia without clinically relevant ST elevation or depression. (BENJIE CAMPOS) Diagnostic Imaging Diagonstic Imaging: Xray Plain Films/CT/US/NM/MRI: chest (1v) Comments NAME: MARINA MCKINNEY [facility] REC#: [id number] PT STATUS: REG ER : 1985 PHYSICIAN: BENJIE CAMPOS MD ADMIT DATE: 04/29/19/ER FS Signed Date of Exam:04/29/19 CHEST 1 VIEW AP/PA ONLY INDICATION: Shortness of breath. TIME OF EXAM: 3:04 p.m. COMPARISON: Correlation is made with prior chest from 11/16/2018. FINDINGS: The heart size is normal. The pulmonary vascularity is unremarkable. The lungs are clear. No infiltrate, effusion or pneumothorax is detected. IMPRESSION: No acute cardiopulmonary process is detected. Dictated by: Dictated on workstation # [id number] Dict: 04/29/19 1533 Trans: 04/29/19 1549 [facility] [id number] Interpreted by: GORGE MCMAHAN MD Electronically signed by: GORGE MCMAHAN MD 04/29/19 1549 Reviewed: Reviewed by Me (BENJIE CAMPOS) Departure Communication (Admissions) Time/Spoke to Admitting Phy: 18:15 Discussed case lab imaging findings with Dr. Flores and he agrees with antibiotic selection and counseling Dr. Alegre in the morning. He agrees with ICU placement. He agrees to admit the patient. (BENJIE CAMPOS) Impression Primary Impression: Pneumonia Qualified Codes: J18.9 - Pneumonia, unspecified organism Additional Impressions: Sepsis Qualified Codes: A41.9 - Sepsis, unspecified organism; R65.20 - Severe sepsis without septic shock; J96.01 - Acute respiratory failure with hypoxia Respiratory failure with hypoxia Qualified Codes: J96.21 - Acute and chronic respiratory failure with hypoxia Disposition: ADMITTED INPATIENT Condition: Critical Admissions Decision to Admit Reason: Admit from ER (General) Decision to Admit/Date: Apr 29, 2019 Time/Decision to Admit Time: 17:00 (BENJIE CAMPOS) Transfer Transfer Reason: Exceeds level of care Time Spoke to Accepting Phy: 17:30 Transfer Time: 19:54 Method of Transfer: EMS (VALERIA FARIAS DO) Departure-Patient Inst. Referrals: GLEN JONAS APRN (PCP) Primary Care Physician NO,LOCAL PHYSICIAN (Family) Primary Care Physician BENJIE CAMPOS Apr 29, 2019 15:10 VALERIA FARIAS DO Apr 29, 2019 19:54
[2019-04-29] MEDS ORDERED: ACETAMINOPHEN 500 MG TAB (TYLENOL) PO ONE (15:15)
[2019-04-29 15:25] LABS: ABG OXYGEN SATURATION 95 % (94-100); ABG PCO2 40 MMHG (35-45); ABG PH 7.47 (7.37-7.43); ABG PO2 73 MMHG (79-93); ABG TCO2 30.3 MMOL/L (21.0-31.0)
[2019-04-29 15:26] LABS: ALLENS TEST OK
[2019-04-29 15:27] LABS: INSPIRED O2 3 L; PATIENT TEMP 38.0 C; VENTILATOR NO
--- NOTE | 2019-04-29 15:35 | Diagnostic Imaging Report ---
INDICATION: Shortness of breath. TIME OF EXAM: 3:04 p.m. COMPARISON: Correlation is made with prior chest from 11/16/2018. FINDINGS: The heart size is normal. The pulmonary vascularity is unremarkable. The lungs are clear. No infiltrate, effusion or pneumothorax is detected. IMPRESSION: No acute cardiopulmonary process is detected. Dictated by: Dictated on workstation # [id number]
[2019-04-29 16:45] LABS: HEMATOCRIT 43 % (35-52); HEMOGLOBIN 14.5 G/DL (11.5-16.0); MEAN CORPUSCULAR HEMOGLOBIN 30 PG (25-34); MEAN CORPUSCULAR HGB CONC 33 G/DL (32-36); MEAN CORPUSCULAR VOLUME 89 FL (80-99); MEAN PLATELET VOLUME 9.6 FL (7.4-10.4); PLATELET COUNT 378 10^3/uL (130-400); RED CELL DISTRIBUTION WIDTH 13.9 % (10.0-14.5); WHITE BLOOD COUNT 22.7 10^3/uL (4.3-11.0)
[2019-04-29] MEDS ORDERED: ONDANSETRON 4 MG/2 ML (SDV) Z0FRAN IVP ONE ×2 (16:45→19:30)
[2019-04-29 16:46] LABS: BASOPHILS # (AUTO) 0.1 10^3/uL (0.0-0.1); BASOPHILS % (AUTO) 1 % (0-10); EOSINOPHILS # (AUTO) 0.1 10^3/uL (0.0-0.3); EOSINOPHILS % (AUTO) 1 % (0-10); LYMPHOCYTES # (AUTO) 3.1 X 10^3 (1.0-4.0); LYMPHOCYTES % (AUTO) 14 % (12-44); MONOCYTES # (AUTO) 1.8 X 10^3 (0.0-1.0); MONOCYTES % (AUTO) 8 % (0-12); NEUTROPHILS # (AUTO) 17.3 X 10^3 (1.8-7.8); NEUTROPHILS % (AUTO) 76 % (42-75)
[2019-04-29 16:55] LABS: ALANINE AMINOTRANSFERASE 61 U/L (0-55); ALBUMIN 4.1 GM/DL (3.2-4.5); ALKALINE PHOSPHATASE 94 U/L (40-136); BILIRUBIN,TOTAL 0.4 MG/DL (0.1-1.0); BUN/CREATININE RATIO 19; CALCIUM 9.4 MG/DL (8.5-10.1); CARBON DIOXIDE 23 MMOL/L (21-32); CHLORIDE 98 MMOL/L (98-107); CREATININE SERUM 0.31 MG/DL (0.60-1.30); GFR ESTIMATED > 60; GLUCOSE 134 MG/DL (70-105); SODIUM 134 MMOL/L (135-145)
[2019-04-29 17:14] LABS: BAND NEUTROPHILS 6 %; BASOPHILS % (MANUAL) 0 %; EOSINOPHILS % (MANUAL) 2 %; LYMPHOCYTES % (MANUAL) 19 %; MONOCYTES % (MANUAL) 6 %; MYELOCYTES % 1 %; NEUTROPHILS % (MANUAL) 66 %
[2019-04-29 17:29] LABS: PROTHROMBIN TIME PATIENT 13.7 SEC (12.2-14.7)
[2019-04-29] MEDS ORDERED: NS IV 1000 ML 1,000 ML ONE (18:08)
[2019-04-29] MEDS ORDERED: NS IV 1000 ML 1,000 ML IV ONE (18:30)
[2019-04-29] MEDS ORDERED: NS IV 1000 ML 1,000 ML IV SCH (18:30)
[2019-04-29 18:56] LABS: BILIRUBIN,URINE NEGATIVE (NEGATIVE); CLARITY,URINE CLEAR; COLOR,URINE YELLOW; GLUCOSE, URINE (UA) NEGATIVE (NEGATIVE); KETONES,URINE 1+ (NEGATIVE); NITRITE,URINE NEGATIVE (NEGATIVE); PROTEIN,URINE NEGATIVE (NEGATIVE)
[2019-04-29 18:57] LABS: BACTERIA,URINE NEGATIVE /HPF; LEUKOCYTE ESTERASE ,URINE NEGATIVE (NEGATIVE); WBC,URINE RARE /HPF
[2019-04-29] MEDS ORDERED: LORazepam INJ 2 MG/ML (ATIVAN) VIAL ONE (20:42)
[2019-04-29] MEDS ORDERED: fentaNYL INJECTION 100 MCG/2 ML AMP ONE (21:06)
[2019-04-29] MEDS ORDERED: NS IV ONE (21:45)
[2019-04-29] MEDS ORDERED: ONDANSETRON 4 MG/2 ML (SDV) Z0FRAN IV PRN (21:45)
[2019-04-29] MEDS ORDERED: EPINEPHrine 1 MG INJECTION 2 MG in NS (IVPB) 250 ML IV SCH (21:45)
[2019-04-29] MEDS ORDERED: KETOROLAC 15 MG/ML VIAL IVP PRN (21:45)
[2019-04-29] MEDS ORDERED: ACETAMINOPHEN 500 MG TAB (TYLENOL) PO PRN (21:45)
[2019-04-29] MEDS: NS IV 1000 ML 1,000 ML IV SCH (21:55)
[2019-04-29] MEDS: NOREPINEPHRINE 4 MG/250 ML NS 250 ML IV SCH (22:26)
[2019-04-29] MEDS: VASOPRESSIN INJECTION 20 UNIT in NORMAL SALINE 100 ML IV SCH (22:26)
[2019-04-29] MEDS: CEFEPIME INJECTION 1,000 MG in WATER (STERILE) FOR INJECTION 10 ML IV SCH (22:46)
[2019-04-30] VITALS (22 sets, daily range): BP systolic 115–165; BP diastolic 61–106
[2019-04-30] MEDS: ZOLPIDEM 5 MG (AMBIEN) TAB PO SCH ×2 (01:58→20:41)
[2019-04-30] MEDS ORDERED: RT-ALBUTEROL SULF 2.5 MG/3 ML PRE-MIX VIAL INH SCH (03:00)
[2019-04-30 03:34] LABS: BASOPHILS # (AUTO) 0.1 10^3/uL (0.0-0.1); BASOPHILS % (AUTO) 0 % (0-10); EOSINOPHILS # (AUTO) 0.1 10^3/uL (0.0-0.3); EOSINOPHILS % (AUTO) 0 % (0-10); HEMATOCRIT 38 % (35-52); HEMOGLOBIN 12.7 G/DL (11.5-16.0); LYMPHOCYTES # (AUTO) 3.3 X 10^3 (1.0-4.0); LYMPHOCYTES % (AUTO) 14 % (12-44); MEAN CORPUSCULAR HEMOGLOBIN 29 PG (25-34); MEAN CORPUSCULAR HGB CONC 34 G/DL (32-36); MEAN CORPUSCULAR VOLUME 87 FL (80-99); MONOCYTES # (AUTO) 2.6 X 10^3 (0.0-1.0); MONOCYTES % (AUTO) 11 % (0-12); NEUTROPHILS # (AUTO) 16.8 X 10^3 (1.8-7.8); NEUTROPHILS % (AUTO) 74 % (42-75); PLATELET COUNT 368 10^3/uL (130-400); RED CELL DISTRIBUTION WIDTH 14.4 % (10.0-14.5); WHITE BLOOD COUNT 22.9 10^3/uL (4.3-11.0)
[2019-04-30 03:57] LABS: ALANINE AMINOTRANSFERASE 56 U/L (0-55); ALBUMIN 3.7 GM/DL (3.2-4.5); ALKALINE PHOSPHATASE 87 U/L (40-136); BILIRUBIN,TOTAL 0.4 MG/DL (0.1-1.0); BUN/CREATININE RATIO 12; CALCIUM 8.6 MG/DL (8.5-10.1); CARBON DIOXIDE 19 MMOL/L (21-32); CHLORIDE 106 MMOL/L (98-107); CREATININE SERUM 0.51 MG/DL (0.60-1.30); GFR ESTIMATED > 60; GLUCOSE 121 MG/DL (70-105); MAGNESIUM 1.9 MG/DL (1.6-2.4); PHOSPHORUS 2.9 MG/DL (2.3-4.7); POTASSIUM 3.8 MMOL/L (3.6-5.0); SODIUM 136 MMOL/L (135-145); TOTAL PROTEIN 6.9 GM/DL (6.4-8.2)
[2019-04-30] MEDS: VANCOMYCIN INJECTION 1,000 MG in NS (IVPB) 250 ML IV SCH ×2 (04:06→15:38)
[2019-04-30] MEDS: NS IV 1000 ML 1,000 ML IV SCH ×4 (04:07→18:22)
[2019-04-30] MEDS: CEFEPIME INJECTION 1,000 MG in WATER (STERILE) FOR INJECTION 10 ML IV SCH ×4 (04:12→20:49)
--- NOTE | 2019-04-30 05:03 | Pulmonary Consultation ---
History of Present Illness History of Present Illness Date of Admission Allergies and Home Medications Allergies Uncoded Allergies: CHEMO MEDS (Allergy, Unknown, 08/30/18) Home Medications Labetalol HCl 100 Mg Tablet, 100 MG PO BID Prescribed by: STAR HOLBROOK on 11/16/182039 Past Sgfrzfv-Isqepc-Psonay Hx Patient Social History Alcohol Use: Denies Use Recreational Drug Use: No Smoking Status: Never a Smoker 2nd Hand Smoke Exposure: No Recent Foreign Travel: No Contact w/Someone Who Travel: No Recent Infectious Disease Expo: No Recent Hopitalizations: No Physical Abuse: No Sexual Abuse: No Mistreated: No Fear: No Immunizations Up To Date Date of Pneumonia Vaccine: Apr 29, 2014 Date of Influenza Vaccine: Jan 27, 2019 Seasonal Allergies Seasonal Allergies: No Past Medical History Surgeries: Yes (BREAST) Respiratory: Yes (Uses Home O2) Cardiac: Yes Hypertension, Irregular Heartbeat Neurological: No : No Genitourinary: No Gastrointestinal: No Gastroesophageal Reflux Musculoskeletal: Yes (Restless leg syndrome) Foot Drop, Contracture Endocrine: No HEENT: No Cancer: Yes Leukemia Psychosocial: Yes Sleep Difficulties, Anxiety, Depression Integumentary: No Blood Disorders: No Sepsis Event Evaluation Height, Weight, BMI Height: 5'4.00" Weight: 128lbs. oz. 58.475899rk; 21.48 BMI Method:Stated Exam Exam Vital Signs Date Time Temp Pulse Resp B/P (MAP) Pulse Ox O2 Delivery O2 Flow Rate FiO2 04/30/19 03:00 117 29 116/74 (88) 91 Nasal Cannula 4.00 04/30/19 02:55 Nasal Cannula 04/30/19 02:51 37.4 139 96 3 04/30/19 02:00 122 26 115/92 (100) 92 Nasal Cannula 4.00 04/30/19 01:00 118 28 121/76 (91) 94 Nasal Cannula 4.00 04/30/19 01:00 120 04/30/19 00:00 120 25 133/69 (90) 95 Nasal Cannula 4.00 04/29/19 23:00 123 26 112/66 (81) 91 Nasal Cannula 4.00 04/29/19 22:30 134 18 155/102 (119) 93 Nasal Cannula 4.00 04/29/19 22:00 137 26 171/102 (125) 95 Nasal Cannula 4.00 04/29/19 21:30 138 28 163/106 (125) 92 Nasal Cannula 4.00 04/29/19 21:15 138 31 168/111 (130) 94 Nasal Cannula 4.00 04/29/19 21:00 93 Nasal Cannula 4.00 04/29/19 21:00 140 30 167/99 (121) 92 Nasal Cannula 4.00 04/29/19 20:50 140 04/29/19 20:45 140 30 169/112 (131) 92 Nasal Cannula 4.00 04/29/19 20:40 37.7 04/29/19 19:46 37.2 133 28 170/110 98 Room Air 04/29/19 14:56 96 Nasal Cannula 3.00 04/29/19 14:51 37.4 139 18 165/106 (125) 96 Nasal Cannula 3.00 I & O 04/30/19 07:00 Intake Total 2300 ml Output Total 700 ml Balance 1600 ml Height & Weight Height: 5'4.00" Weight: 128lbs. oz. 58.519769sh; 21.48 BMI Method:Stated Respiratory: Lungs Clear, No Accessory Muscle Use, Respiratory Distress (mild- mod) Cardiovascular: Regular Rate, Rhythm, No Murmur, Normal Peripheral Pulses, Tachycardia Capillary Refill: Less Than 3 Seconds Peripheral Pulses: 2+ Radial Pulses (R), 2+ Radial Pulses (L) Gastrointestinal: normal bowel sounds, non tender, soft Results Lab Laboratory Tests 04/29/19 16:19 04/30/19 02:42 Assessment/Plan Assessment/Plan PNA with severe sepsis -Repeat LA -Negative influenza -SVNS -Continue Vanco and cefepime for now Sinus tach -Pt takes labetalol 100mg BID at home -Will restart with hold parameters for BP and HR. 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
[2019-04-30] MEDS: fentaNYL INJECTION 100 MCG/2 ML AMP IV PRN ×3 (05:42→20:49)
[2019-04-30] MEDS ORDERED: RT-ALBUTEROL SULF 2.5 MG/3 ML PRE-MIX VIAL INH PRN (06:30)
[2019-04-30] MEDS: LORazepam INJ 2 MG/ML (ATIVAN) VIAL IV PRN ×2 (07:34→13:08)
[2019-04-30] MEDS: VASOPRESSIN INJECTION 20 UNIT in NORMAL SALINE 100 ML IV SCH ×3 (07:34→20:41)
[2019-04-30] MEDS: NOREPINEPHRINE 4 MG/250 ML NS 250 ML IV SCH ×2 (07:35→20:40)
[2019-04-30] MEDS: LABETALOL 200 MG (NORMODYNE) TAB PO SCH ×2 (07:38→20:41)
[2019-04-30] MEDS ORDERED: ONDA8TAB12 PO (11:36)
[2019-04-30] MEDS ORDERED: [UNRECOGNIZED DRUG - CODE] OU (11:36)
[2019-04-30] MEDS ORDERED: LOSA100T57 PO (11:36)
[2019-04-30] MEDS ORDERED: MIRT15TA6 PO (11:36)
[2019-04-30] MEDS ORDERED: ROPI1TAB2 PO (11:36)
[2019-04-30] MEDS ORDERED: ZOLP10TA5 PO (11:36)
[2019-04-30] MEDS ORDERED: PANT40TA3 PO (11:36)
[2019-04-30] MEDS ORDERED: TIZA2TAB4 PO (11:36)
[2019-04-30] MEDS ORDERED: OXYC10TA55 PO (11:36)
[2019-04-30] MEDS ORDERED: PREG75CA PO (11:36)
[2019-04-30] MEDS ORDERED: AMIT25TA9 PO (11:36)
[2019-04-30] MEDS ORDERED: LORA1TAB PO (11:36)
[2019-04-30] MEDS ORDERED: ALEN70TA5 PO (11:36)
[2019-04-30] MEDS ORDERED: DULO60CA59 PO (11:36)
[2019-04-30] MEDS ORDERED: LABE100T6 PO (11:39)
--- NOTE | 2019-04-30 11:40 | NUR ---
WENT OVER THE EXT MED HX WITH THE PATIENT. SHE VERIFIED HOW SHE TAKES THEM. THERE WAS A COPY OF A LIST ON HER CHART. I COMPARED IT WITH THE EXT MED HX. THERE ARE SEVERAL MEDICATIONS SHE TAKES IN ADDITION TO THAT LIST. SHE NO LONGER TAKES THE GABAPENTIN IT HAS BEEN CHANGED TO LYRICA. SHE ALSO DOES NOT TAKE CYCLOBENZAPRINE, SHE NOW HAS TIZANIDINE. HER LYRICA WAS FILLED 75MG #90 FOR 30 DAYS 04-26-19 - SHE STATES SHE TAKES IT BID. THEY ARE WORKING ON DECREASING HER DOSE. SHE FILLED BACLOFEN 5MG #90 03-31-19 - SHE NO LONGER TAKES THIS EITHER NOW THAT SHE IS PRESCRIBED TIZANIDINE. SHE STATS SHE USES OXYCONTIN ONLY NEEDED. SHE DOES NOT TAKE THEY OXYCODONE ANYMORE.
[2019-04-30] MEDS ORDERED: HOLD METFORMIN - RECEIVED CONTRAST 20 ML VIAL IV SCH (12:45)
[2019-04-30] MEDS ORDERED: IOHEXOL 350 MG/ML 100 ML (OMNIPAQUE 350) VIAL IV ONE (12:45)
[2019-04-30] MEDS ORDERED: NS 100 ML (IVPB) BAG IV ONE (12:45)
[2019-04-30] MEDS ORDERED: CATHETER FLUSH 10 ML SYR IV PRN (12:45)
--- NOTE | 2019-04-30 13:15 | Diagnostic Imaging Report ---
INDICATION: PICC line placement. TIME OF EXAM: 1:09 PM Correlation is made with prior study one day earlier. Right upper extremity PICC line has been placed with the tip in good position overlying the SVC. No pneumothorax is identified. There are some patchy airspace infiltrates in both lung bases. No effusion is seen. IMPRESSION: Satisfactory PICC line placement. Dictated by: Dictated on workstation # [id number]
--- NOTE | 2019-04-30 14:36 | History & Physical-Hospitalist ---
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 She reports that she has been feeling short of breath the past couple days. She reports fevers. She has been requiring more oxygen at home. She denies any chest pain. She denies any abdominal pain, nausea, or vomiting. She denies any diarrhea. She denies any dysuria. Source: patient Exam Limitations: no limitations Date Seen 04/30/19 Time Seen by a Provider: 08:30 Attending Physician Lauren Gonzalez MD PCP Luz Maria Robins Aprn Referring Physician Date of Admission Apr 29, 2019 at 18:15 Home Medications & Allergies Home Medications Reviewed patient Home Medication Reconciliation performed by pharmacy medication reconciliations hospital pharmacy technician and/or nursing. Patients Allergies have been reviewed. Allergies Allergies Uncoded Allergies CHEMO MEDS ( Allergy, Unknown, 08/30/18) Past Ftgrfjm-Clhife-Mjzvok Hx Past Med/Social Hx: Reviewed Nursing Past Med/Soc Hx Patient Social History Alcohol Use: Denies Use Recreational Drug Use: No Smoking Status: Never a Smoker 2nd Hand Smoke Exposure: No Recent Foreign Travel: No Contact w/other who traveled: No Recent Hopitalizations: No Recent Infectious Disease Expo: No Immunizations Up To Date Date of Pneumonia Vaccine: Apr 29, 2014 Date of Influenza Vaccine: Jan 27, 2019 Seasonal Allergies Seasonal Allergies: No Past Medical History Cardiac: Hypertension, Irregular Heartbeat : No Gastrointestinal: Gastroesophageal Reflux Musculoskeletal: Foot Drop, Contracture Cancer: Leukemia Psychosocial: Sleep Difficulties, Anxiety, Depression History of Blood Disorders: No Review of Systems Constitutional: fever EENTM: no symptoms reported Respiratory: short of breath Cardiovascular: no symptoms reported Gastrointestinal: no symptoms reported Genitourinary: no symptoms reported Musculoskeletal: no symptoms reported Skin: no symptoms reported Psychiatric/Neurological: No Symptoms Reported Physical Exam Physical Exam Vital Signs Vital Signs - First Documented 04/29/19 04/30/19 14:51 02:51 Temp 37.4 Pulse 139 Resp 18 B/P (MAP) 165/106 (125) Pulse Ox 96 O2 Delivery Nasal Cannula O2 Flow Rate 3.00 FiO2 3 Capillary Refill : Less Than 3 Seconds Height, Weight, BMI Height: 5'4.00" Weight: 128lbs. oz. 58.723865gx; 21.48 BMI Method:Stated General Appearance: No Apparent Distress, WD/WN, Chronically ill HEENT: PERRL/EOMI, Pharynx Normal Neck: Normal Inspection, Supple Respiratory: Lungs Clear, No Respiratory Distress, Decreased Breath Sounds Cardiovascular: No Murmur, Tachycardia (regular rhythm) Gastrointestinal: Normal Bowel Sounds, Non Tender, Soft Extremity: Normal Inspection, Non Tender, No Pedal Edema Neurologic/Psychiatric: Alert, Oriented x3, No Motor/Sensory Deficits, Normal Mood/Affect Results Results/Procedures Labs Laboratory Tests 04/29/19 16:19 04/30/19 02:42 Patient resulted labs reviewed. Imaging: Reviewed Imaging Report Assessment/Plan Admission Diagnosis sepsis Admission Status: Inpatient Order (span 2 midnights) Reason for Inpatient Admission: sepsis requiring IV antibiotics and further evaluation Assessment and Plan Sepsis Acute on chronic hypoxic respiratory failure Possible pneumonia SIRS+ with leukocytosis and tachycardia Chest x-ray unrevealing UA normal Blood cultures pending Started on vancomycin and cefepime Procalcitonin normal Repeat chest x-ray unrevealing Obtain the CT angio chest Pulmonology following, appreciate assistance History of AML s/p stem cell transplant 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 at Not on chemotherapy DVT prophylaxis: Lovenox Diagnosis/Problems Diagnosis/Problems (1) Sepsis Status: Acute Qualifiers: Sepsis type: sepsis due to unspecified organism Sepsis acute organ dysfunction status: with acute organ dysfunction Severe sepsis acute organ dysfunction type: acute respiratory failure Acute respiratory failure type: with hypoxia Severe sepsis shock status: without septic shock Qualified Codes: A41.9 - Sepsis, unspecified organism; R65.20 - Severe sepsis without septic shock; J96.01 - Acute respiratory failure with hypoxia (2) Acute and chronic respiratory failure with hypoxia Status: Acute Clinical Quality Measures DVT/VTE Risk/Contraindication: Risk Factor Score Per Nursin RFS Level Per Nursing on Admit: 4+=Very High LAUREN GONZALEZ MD Apr 30, 2019 14:36
--- NOTE | 2019-04-30 14:39 | Diagnostic Imaging Report ---
PROCEDURE: CT angiography of the chest with contrast. TECHNIQUE: Multiple contiguous axial images were obtained through the chest after uneventful bolus administration of intravenous contrast. 3D reconstructed CTA MIP acquisitions were also performed. Auto Exposure Controls were utilized during the CT exam to meet ALARA standards for radiation dose reduction. INDICATION: Hypoxia, pneumonia and sepsis. COMPARISON: No prior CT studies are available for comparison. FINDINGS: Evaluation of the pulmonary arterial system is without evidence of thromboembolism. No definite filling defects are seen within central, lobar or segmental branches. The thoracic aorta is normal caliber. No dissection is seen. There is no pericardial or significant pleural fluid. No definite axillary, hilar or mediastinal lymphadenopathy is detected. There is a subtle somewhat mosaic ventilation pattern to both lungs. There are minimal areas of linear and patchy parenchymal density in bilateral upper lobes as well as the right middle lobe and bilateral lower lobes. No discrete mass is seen. Upper abdomen demonstrates diffuse low-density throughout the liver consistent with hepatic steatosis. IMPRESSION: 1. No evidence of pulmonary embolism or thoracic aortic dissection. 2. Patchy bilateral pulmonary parenchymal densities, likely on an infectious/inflammatory basis. 3. Hepatic steatosis. Dictated by: Dictated on workstation # [id number]
[2019-04-30] MEDS: ENOXAPARIN 40 MG/0.4 ML (LOVENOX) SYR SQ SCH (15:38)
[2019-05-01] VITALS (10 sets, daily range): BP systolic 128–153; BP diastolic 89–100
[2019-05-01] MEDS: NS IV 1000 ML 1,000 ML IV SCH ×5 (01:44→20:33)
[2019-05-01] MEDS: fentaNYL INJECTION 100 MCG/2 ML AMP IV PRN ×3 (01:44→09:39)
[2019-05-01] MEDS: VANCOMYCIN INJECTION 1,000 MG in NS (IVPB) 250 ML IV SCH ×2 (03:09→15:52)
[2019-05-01 03:22] LABS: BASOPHILS # (AUTO) 0.1 10^3/uL (0.0-0.1); BASOPHILS % (AUTO) 0 % (0-10); EOSINOPHILS # (AUTO) 0.5 10^3/uL (0.0-0.3); EOSINOPHILS % (AUTO) 4 % (0-10); HEMATOCRIT 36 % (35-52); HEMOGLOBIN 12.2 G/DL (11.5-16.0); LYMPHOCYTES # (AUTO) 2.9 X 10^3 (1.0-4.0); LYMPHOCYTES % (AUTO) 19 % (12-44); MEAN CORPUSCULAR HEMOGLOBIN 29 PG (25-34); MEAN CORPUSCULAR HGB CONC 34 G/DL (32-36); MEAN CORPUSCULAR VOLUME 88 FL (80-99); MEAN PLATELET VOLUME 9.6 FL (7.4-10.4); MONOCYTES # (AUTO) 1.6 X 10^3 (0.0-1.0); MONOCYTES % (AUTO) 11 % (0-12); NEUTROPHILS % (AUTO) 66 % (42-75); PLATELET COUNT 308 10^3/uL (130-400); RED CELL DISTRIBUTION WIDTH 14.3 % (10.0-14.5); WHITE BLOOD COUNT 15.1 10^3/uL (4.3-11.0)
[2019-05-01 03:45] LABS: BUN/CREATININE RATIO 8; CALCIUM 8.6 MG/DL (8.5-10.1); CARBON DIOXIDE 21 MMOL/L (21-32); CHLORIDE 105 MMOL/L (98-107); CREATININE SERUM 0.52 MG/DL (0.60-1.30); GFR ESTIMATED > 60; GLUCOSE 102 MG/DL (70-105); MAGNESIUM 1.8 MG/DL (1.6-2.4); PHOSPHORUS 2.6 MG/DL (2.3-4.7); POTASSIUM 3.6 MMOL/L (3.6-5.0); SODIUM 139 MMOL/L (135-145)
[2019-05-01] MEDS: CEFEPIME INJECTION 1,000 MG in WATER (STERILE) FOR INJECTION 10 ML IV SCH ×4 (04:10→20:53)
[2019-05-01] MEDS ORDERED: MAGNESIUM 1 GM/100 ML IVPB 100 ML IV SCH (06:00)
[2019-05-01] MEDS ORDERED: KCL 20 MEQ TAB (K-DUR) PO SCH (06:00)
[2019-05-01] MEDS ORDERED: POTASSIUM CL 10MEQ/50ML IVPB 50 ML IV SCH (06:00)
[2019-05-01] MEDS: LORazepam INJ 2 MG/ML (ATIVAN) VIAL IV PRN (06:18)
--- NOTE | 2019-05-01 07:02 | Pulmonary Progress Note ---
Subjective Time Seen by a Provider: 06:57 Subjective/Events-last exam Pt appears to be doing better. Sepsis Event Evaluation Height, Weight, BMI Height: 5'4.00" Weight: 128lbs. oz. 58.527067oi; 21.48 BMI Method:Stated Focused Exam Lactate Level 04/29/19 16:40: Lactic Acid Level 0.99 04/30/19 05:30: Lactic Acid Level 0.69 Time of Focused Exam: 18:25 Exam Exam Vital Signs Date Time Temp Pulse Resp B/P (MAP) Pulse Ox O2 Delivery O2 Flow Rate FiO2 05/01/19 06:00 Nasal Cannula 3.00 05/01/19 06:00 97 19 147/100 (116) 94 Nasal Cannula 3.00 05/01/19 05:00 110 18 133/91 (105) 92 Nasal Cannula 3.00 05/01/19 04:09 36.4 95 Nasal Cannula 3.00 05/01/19 04:00 Nasal Cannula 4.00 05/01/19 04:00 100 17 153/97 (115) 94 Nasal Cannula 3.00 05/01/19 03:00 105 21 142/92 (109) 93 Nasal Cannula 4.00 05/01/19 02:00 103 16 128/89 (102) 94 Nasal Cannula 5.00 05/01/19 01:00 107 05/01/19 01:00 107 16 146/96 (113) 94 Nasal Cannula 5.00 05/01/19 00:00 Nasal Cannula 4.00 05/01/19 00:00 97 19 131/97 (108) 93 Nasal Cannula 5.00 05/01/19 00:00 36.2 04/30/19 23:00 93 19 119/92 (101) 94 Nasal Cannula 5.00 04/30/19 22:00 101 20 140/100 (113) 94 Nasal Cannula 5.00 04/30/19 21:00 112 21 132/89 (103) 92 Nasal Cannula 5.00 04/30/19 20:00 112 20 95 Nasal Cannula 5.00 04/30/19 20:00 36.0 04/30/19 20:00 Nasal Cannula 4.00 04/30/19 19:00 115 04/30/19 19:00 112 20 123/93 (103) 94 Nasal Cannula 5.00 04/30/19 18:00 118 18 140/93 (109) 91 Nasal Cannula 4.00 04/30/19 17:00 110 20 146/94 (111) 98 Nasal Cannula 4.00 04/30/19 16:00 Nasal Cannula 4.00 04/30/19 16:00 118 18 143/90 (107) 96 Nasal Cannula 4.00 04/30/19 15:00 36.4 117 29 129/61 (83) 94 Nasal Cannula 5.00 04/30/19 13:00 114 25 91 Nasal Cannula 4.00 04/30/19 12:40 117 04/30/19 12:00 37.2 04/30/19 12:00 111 19 133/90 (104) 92 Nasal Cannula 4.00 04/30/19 12:00 Nasal Cannula 4.00 04/30/19 11:00 114 54 152/94 (113) 96 Nasal Cannula 4.00 04/30/19 10:00 126 22 149/93 (111) 95 Nasal Cannula 4.00 04/30/19 09:00 129 28 164/102 (122) 96 Nasal Cannula 4.00 04/30/19 08:00 124 29 143/98 (113) 97 Nasal Cannula 4.00 04/30/19 08:00 Nasal Cannula 4.00 04/30/19 07:00 118 31 149/91 (110) 94 Nasal Cannula 4.00 04/30/19 07:00 36.9 I & O 05/01/19 07:00 Intake Total 1925 ml Output Total 2825 ml Balance -900 ml Height & Weight Height: 5'4.00" Weight: 128lbs. oz. 58.750380hj; 21.48 BMI Method:Stated General Appearance: No Apparent Distress, WD/WN, Chronically ill HEENT: PERRL/EOMI, Pharynx Normal Neck: Normal Inspection, Supple Respiratory: Lungs Clear, No Respiratory Distress, Decreased Breath Sounds Cardiovascular: No Murmur, Tachycardia (regular rhythm) Capillary Refill: Less Than 3 Seconds Peripheral Pulses: 2+ Radial Pulses (R), 2+ Radial Pulses (L) Gastrointestinal: normal bowel sounds, non tender, soft Extremity: Normal Inspection, Non Tender, No Pedal Edema Neurologic/Psychiatric: Alert, Oriented x3, No Motor/Sensory Deficits, Normal Mood/Affect Results Lab Laboratory Tests 04/29/19 16:19 04/30/19 02:42 05/01/19 03:13 Assessment/Plan Assessment/Plan PNA with severe sepsis with hypoxia -Negative influenza -SVNS -Continue Vanco and cefepime -CT of chest is negative for PE does show PNA -Oxygen Sinus tach - improved -monitor -home meds restarted Hx of AML in 2012 -Follows with oncology at 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
[2019-05-01] MEDS: LABETALOL 200 MG (NORMODYNE) TAB PO SCH ×2 (08:17→20:26)
[2019-05-01] MEDS: KCL 20 MEQ TAB (K-DUR) PO ONE ×2 (08:18→08:45)
[2019-05-01] MEDS ORDERED: KCL 20 MEQ POWDER FOR ORAL SOLUTION ONE (08:34)
[2019-05-01] MEDS ORDERED: KCL 20 MEQ POWDER FOR ORAL SOLUTION PO ONE (08:45)
[2019-05-01] MEDS: RT-ALBUTEROL/IPRATROPIUM 3 ML (DUONEB) VIAL INH SCH ×3 (09:33→21:33)
--- NOTE | 2019-05-01 10:36 | Progress Note - Hospitalist ---
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 She reports that she has been feeling short of breath the past couple days. She reports fevers. She has been requiring more oxygen at home. She denies any chest pain. She denies any abdominal pain, nausea, or vomiting. She denies any diarrhea. She denies any dysuria. Subjective/Events-last exam Pt reports feeling much better. Chronically on 2lpm of oxygen. I turned down to this while in there and she did well. Focused Exam Lactate Level 04/29/19 16:40: Lactic Acid Level 0.99 04/30/19 05:30: Lactic Acid Level 0.69 Time of Focused Exam: 18:25 Objective Exam Vital Signs Vital Signs Date Time Temp Pulse Resp B/P (MAP) Pulse Ox O2 Delivery O2 Flow Rate FiO2 05/01/19 09:33 96 Nasal Cannula 2.00 05/01/19 08:00 106 18 147/99 (115) 05/01/19 04:09 36.4 04/30/19 02:51 3 Capillary Refill : Less Than 3 Seconds General Appearance: No Apparent Distress, Chronically ill Respiratory: Lungs Clear, No Accessory Muscle Use, No Respiratory Distress Cardiovascular: Regular Rate, Rhythm, No Murmur Gastrointestinal: Normal Bowel Sounds, Soft Neurologic/Psychiatric: Alert, Oriented x3 Results/Procedures Lab Laboratory Tests 05/01/19 03:13 Patient resulted labs reviewed. 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
[2019-05-01] MEDS ORDERED: LORazepam 1 MG (ATIVAN) TAB PO PRN (10:45)
[2019-05-01] MEDS ORDERED: oxyCODONE ER 10 MG (OxyCONTIN CR) TAB PO PRN (10:45)
[2019-05-01] MEDS: LOSARTAN 100 MG (COZAAR) TABLET PO SCH (15:03)
[2019-05-01] MEDS: DULoxetine 30 MG (CYMBALTA) CAP PO SCH (15:04)
[2019-05-01] MEDS: PANTOPRAZOLE 40 MG (PROTONIX) TAB PO SCH (15:04)
[2019-05-01] MEDS: ENOXAPARIN 40 MG/0.4 ML (LOVENOX) SYR SQ SCH (16:00)
[2019-05-01] MEDS: ZOLPIDEM 5 MG (AMBIEN) TAB PO SCH (20:26)
[2019-05-01] MEDS: PREGABALIN 75 MG (LYRICA) CAP PO SCH (20:26)
[2019-05-01] MEDS ORDERED: AMITRIPTYLINE 25 MG (ELAVIL) TAB PO SCH (21:00)
[2019-05-01] MEDS ORDERED: MIRTAZAPINE 15 MG (REMERON) TAB PO SCH (21:00)
[2019-05-01] MEDS ORDERED: rOPINIRole 1 MG (REQUIP) TABLET PO SCH (21:00)
[2019-05-02 00:30] VITALS: BP 149/87
[2019-05-02] MEDS: CEFEPIME INJECTION 1,000 MG in WATER (STERILE) FOR INJECTION 10 ML IV SCH ×2 (03:17→08:57)
[2019-05-02] MEDS: VANCOMYCIN INJECTION 1,000 MG in NS (IVPB) 250 ML IV SCH (03:17)
[2019-05-02] MEDS: NS IV 1000 ML 1,000 ML IV SCH ×2 (03:18→13:00)
[2019-05-02] MEDS: RT-ALBUTEROL/IPRATROPIUM 3 ML (DUONEB) VIAL INH SCH (04:07)
[2019-05-02 04:42] VITALS: BP 153/90
[2019-05-02 07:06] LABS: BUN/CREATININE RATIO 8; CALCIUM 9.2 MG/DL (8.5-10.1); CARBON DIOXIDE 25 MMOL/L (21-32); CHLORIDE 102 MMOL/L (98-107); GFR ESTIMATED > 60; GLUCOSE 106 MG/DL (70-105); MAGNESIUM 1.8 MG/DL (1.6-2.4); PHOSPHORUS 2.6 MG/DL (2.3-4.7); POTASSIUM 3.6 MMOL/L (3.6-5.0); SODIUM 138 MMOL/L (135-145)
[2019-05-02 08:54] VITALS: BP 159/94
[2019-05-02] MEDS: PREGABALIN 75 MG (LYRICA) CAP PO SCH (08:54)
[2019-05-02] MEDS: PANTOPRAZOLE 40 MG (PROTONIX) TAB PO SCH (08:54)
[2019-05-02] MEDS: DULoxetine 30 MG (CYMBALTA) CAP PO SCH (08:54)
[2019-05-02] MEDS: LOSARTAN 100 MG (COZAAR) TABLET PO SCH (08:55)
[2019-05-02] MEDS: LABETALOL 200 MG (NORMODYNE) TAB PO SCH (08:55)
[2019-05-02] MEDS ORDERED: [UNRECOGNIZED DRUG - OTHER] OU SCH (09:00)
[2019-05-02 12:07] VITALS: BP 146/92
[2019-05-02] MEDS: fentaNYL INJECTION 100 MCG/2 ML AMP IV PRN (13:06)
--- NOTE | 2019-05-02 13:14 | Discharge Inst-Simple/Standard ---
Discharge Inst-Standard Discharge Medications New, Converted or Re-Newed RX: Transmitted to Pharmacy Patient Instructions/Follow Up Plan of Care/Instructions/FU: please continue to take her medications as written. Please follow-up with her primary care doctor the next week. Activity as Tolerated: Yes Discharge Diet: No Restrictions Return to The Hospital For: Shortness of breath, chest pain, fevers, confusion, if you feel you are getting worse. ANGELY TRIPATHI MD May 02, 2019 13:14
[2019-05-02] MEDS ORDERED: CEFD300C3 PO (13:16)
--- NOTE | 2019-05-02 13:22 | Discharge Summary ---
Diagnosis/Chief Complaint Date of Admission Apr 29, 2019 at 18:15 Date of Discharge Discharge Date: May 02, 2019 Admission Diagnosis sepsis Primary Care No,Local Physician Discharge Diagnosis (1) Sepsis Status: Acute (2) Acute and chronic respiratory failure with hypoxia Status: Acute Discharge Summary Procedures/Consulations Pulm- Dr Alegre Discharge Physical Exam Allergies: Uncoded Allergies: CHEMO MEDS (Allergy, Unknown, 08/30/18) Vitals & I&Os Vital Signs Date Time Temp Pulse Resp B/P (MAP) Pulse Ox O2 Delivery O2 Flow Rate FiO2 05/02/19 12:18 100 05/02/19 12:07 36.8 18 146/92 (110) 96 Nasal Cannula 3.00 04/30/19 02:51 3 General Appearance: No Apparent Distress, Chronically ill Respiratory: Lungs Clear, No Respiratory Distress Cardiovascular: Regular Rate, Rhythm, No Murmur Neurologic/Psychiatric: Alert, Oriented x3 Hospital Course patient is a 34 old female with a past medical history of leukemia status post stem cell transplant and 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 She was started on vancomycin and cefepime and responded well. Blood cultures were taken and were negative. A MRSA screen was negative as well and thus vancomycin was discontinued. Her white count trended down. she had an uncomplicated hospital course and quickly returned to her baseline oxygen requirement of 3 L/m. On day of discharge she requested discharge home. She was sent home to complete probiotics with a course of Omnicef. She is follow-up with her primary care nurse practitioner within the next week. I did advise her to take a probiotic while on anti-biotics. Labs (last 24 hrs) Laboratory Tests 05/02/19 06:38: Sodium Level 138, Potassium Level 3.6, Chloride Level 102, Carbon Dioxide Level 25, Anion Gap 11, Blood Urea Nitrogen 4L, Creatinine 0.50L, Estimat Glomerular Filtration Rate > 60, BUN/Creatinine Ratio 8, Glucose Level 106H, Calcium Level 9.2, Phosphorus Level 2.6, Magnesium Level 1.8 Microbiology 04/29/19 MRSA Screen - Final, Complete MRSA not isolated 04/29/19 Urine Culture - Final, Complete NO GROWTH 04/29/19 Blood Culture - Preliminary, Resulted No growth Patient resulted labs reviewed. Pending Labs Laboratory Tests 05/02/19 06:38: Sodium Level 138, Potassium Level 3.6, Chloride Level 102, Carbon Dioxide Level 25, Anion Gap 11, Blood Urea Nitrogen 4, Creatinine 0.50, Estimat Glomerular Filtration Rate > 60, BUN/Creatinine Ratio 8, Glucose Level 106, Calcium Level 9.2, Phosphorus Level 2.6, Magnesium Level 1.8 Imaging: Reviewed Imaging Report Discussion & Recommendations Discharge Planning: >30 minutes discharge planning Discharge Home Medications: Active Scripts Active Cefdinir 300 Mg Capsule 300 Mg PO BID Reported Labetalol HCl 100 Mg Tablet 100 Mg PO BID Ondansetron HCl 8 Mg Tablet 8 Mg PO Q8H PRN Oxycontin (Oxycodone HCl) 10 Mg Tab.er.12h 10 Mg PO BID PRN Amitriptyline HCl 25 Mg Tablet 50 Mg PO HS TAKES 2 (25MG) TABLETS Zolpidem Tartrate 10 Mg Tablet 10 Mg PO HS Duloxetine HCl 60 Mg Capsule.dr 60 Mg PO DAILY Ropinirole HCl 1 Mg Tablet 1 Mg PO HS Mirtazapine 15 Mg Tablet 15 Mg PO HS Tizanidine HCl 2 Mg Tablet 2 Mg PO BID PRN Pantoprazole Sodium 40 Mg Tablet.dr 40 Mg PO DAILY Lyrica (Pregabalin) 75 Mg Capsule 75 Mg PO BID Lacrisert (Hydroxypropyl Cellulose) 5 Mg Insert 5 Mg OU DAILY Alendronate Sodium 70 Mg Tablet 70 Mg PO WEEK Losartan Potassium 100 Mg Tablet 100 Mg PO DAILY Lorazepam 1 Mg Tablet 1 Mg PO DAILY PRN Instructions to patient/family Please see electronic discharge instructions given to patient. Clinical Quality Measures DVT/VTE Risk/Contraindication: Risk Factor Score Per Nursin RFS Level Per Nursing on Admit: 4+=Very High Problem Qualifiers (1) Sepsis: Sepsis type: sepsis due to unspecified organism Sepsis acute organ dysfunction status: with acute organ dysfunction Severe sepsis acute organ dysfunction type: acute respiratory failure Acute respiratory failure type: with hypoxia Severe sepsis shock status: without septic shock Qualified Codes: A41.9 - Sepsis, unspecified organism; R65.20 - Severe sepsis without septic shock; J96.01 - Acute respiratory failure with hypoxia ANGELY TRIPATHI MD May 02, 2019 13:22
== END 2019-05-02 14:10 | disposition home or self-care (01) | DRG 871 ==
LOC: EDUNIT# 14:51 → ER FS 14:52 → ICU 18:15 → 4TH 05-01 10:36
PROVIDERS: ADMIT Internal Medicine; ATTEND Internal Medicine
DX: A41.9 Sepsis, unspecified organism (principal); J18.9 Pneumonia, unspecified organism; J96.21 Acute and chronic respiratory failure with hypoxia; Z94.84 Stem cells transplant status; I10 Essential (primary) hypertension; F41.9 Anxiety disorder, unspecified; F32.9 Major depressive disorder, single episode, unspecified; Z85.6 Personal history of leukemia; R65.20 Severe sepsis without septic shock; Z99.81 Dependence on supplemental oxygen
CPT/HCPCS: 36415; 36569; 71045; 71275; 76937; 80048; 80053; 81000; 82805; 83605; 83735; 83880; 84100; 84145; 85007; 85025; 85027; 85610; 85730; 87040; 87081; 87088; 87804; 94640; 94760

== ENCOUNTER 2019-05-19 09:39 | Emergency (ER) | payer MEDICAID ==
[~2019-05-19] VITALS: Ht 154 cm; Wt 58.8 kg
[~2019-05-19 09:39] MED LIST changes: +ALEN70TA5 PO; +AMIT25TA9 PO; +CEFD300C3 PO; +DULO60CA59 PO; +LORA1TAB PO; +LOSA100T57 PO; +MIRT15TA6 PO; +ONDA8TAB12 PO; +OXYC10TA55 PO; +PANT40TA3 PO; +PREG75CA PO; +ROPI1TAB2 PO; +TIZA2TAB4 PO; +ZOLP10TA5 PO; +[UNRECOGNIZED DRUG - CODE] OU
--- NOTE | 2019-05-19 09:52 | ED General ---
General Stated Complaint: SOB; O2 82 History of Present Illness Date Seen by Provider: May 19, 2019 Time Seen by Provider: 09:52 Initial Comments Patient presenting to emergency department for evaluation of worsening shortness of breath. She was recently hospitalized from April 29 the for community acquired pneumonia. She has complex medical history involving diagnosis of leukemia with bone marrow transplant resulting and kxraj-djexvl-slzt disease. She is currently cancer free and is on no immunosuppressants. She has been having more shortness of breath related to her zmest-lxuvum-sjsk disease and was started on oxygen and March. In April she sustained pneumonia and was on vancomycin and discharged on Omnicef. She is on 2 L at baseline and says that her oxygen has gone down into the low 80s on her oxygen but is currently satting in the mid 90s. Looking through her workup appears that she had CT pulmonary angiogram on April 30 and was negative for PE. She appears moderately short of breath but is nontoxic with normal vital signs other than tachycardia noted. Allergies and Home Medications Allergies Uncoded Allergies: CHEMO MEDS (Allergy, Unknown, 08/30/18) Home Medications Alendronate Sodium 70 Mg Tablet, 70 MG PO WEEK, (Reported) Amitriptyline HCl 25 Mg Tablet, 50 MG PO HS, (Reported) TAKES 2 (25MG) TABLETS Cefdinir 300 Mg Capsule, 300 MG PO BID Prescribed by: ANGELY TRIPATHI on 05/02/19 1316 Duloxetine HCl 60 Mg Capsule.dr, 60 MG PO DAILY, (Reported) Hydroxypropyl Cellulose 5 Mg Insert, 5 MG OU DAILY, (Reported) Labetalol HCl 100 Mg Tablet, 100 MG PO BID, (Reported) Lorazepam 1 Mg Tablet, 1 MG PO DAILY PRN for ANXIETY, (Reported) Losartan Potassium 100 Mg Tablet, 100 MG PO DAILY, (Reported) Mirtazapine 15 Mg Tablet, 15 MG PO HS, (Reported) Ondansetron HCl 8 Mg Tablet, 8 MG PO Q8H PRN for NAUSEA/VOMITING-1ST LINE, (Reported) Oxycodone HCl 10 Mg Tab.er.12h, 10 MG PO BID PRN for PAIN-SEVERE (8-10), (Reported) Pantoprazole Sodium 40 Mg Tablet.dr, 40 MG PO DAILY, (Reported) Pregabalin 75 Mg Capsule, 75 MG PO BID, (Reported) Ropinirole HCl 1 Mg Tablet, 1 MG PO HS, (Reported) Tizanidine HCl 2 Mg Tablet, 2 MG PO BID PRN for MUSCLE SPASMS, (Reported) Zolpidem Tartrate 10 Mg Tablet, 10 MG PO HS, (Reported) Patient Home Medication List Home Medication List Reviewed: Yes Review of Systems Review of Systems Constitutional: malaise EENTM: no symptoms reported Respiratory: cough, short of breath Cardiovascular: no symptoms reported Gastrointestinal: no symptoms reported Genitourinary: no symptoms reported Musculoskeletal: no symptoms reported Skin: no symptoms reported Psychiatric/Neurological: No Symptoms Reported All Other Systems Reviewed Negative Unless Noted: Yes Past Mxeooab-Bjojcr-Cezyyr Hx Patient Social History 2nd Hand Smoke Exposure: No Recent Foreign Travel: No Recent Hopitalizations: No Immunizations Up To Date Date of Pneumonia Vaccine: Apr 29, 2014 Date of Influenza Vaccine: Jan 27, 2019 Seasonal Allergies Seasonal Allergies: No Past Medical History Surgeries: Yes (BREAST) Respiratory: Yes (Uses Home O2) Cardiac: Yes Hypertension, Irregular Heartbeat Neurological: No Genitourinary: No Gastrointestinal: No Gastroesophageal Reflux Musculoskeletal: Yes (Restless leg syndrome) Foot Drop, Contracture Endocrine: No HEENT: No Cancer: Yes Leukemia Psychosocial: Yes Sleep Difficulties, Anxiety, Depression Integumentary: No Blood Disorders: No Physical Exam Vital Signs Vital Signs - First Documented 05/19/19 10:09 Temp 36.2 Pulse 119 Resp 17 B/P (MAP) 134/90 (105) Pulse Ox 99 O2 Delivery Room Air Capillary Refill : Height, Weight, BMI Height: 5'4.00" Weight: 128lbs. oz. 58.044402rt; 21.48 BMI Method:Stated General Appearance: Chronically ill, Moderate Distress HEENT: PERRL/EOMI Neck: Supple Respiratory: Crackles, Decreased Breath Sounds, Wheezing Cardiovascular: Normal Peripheral Pulses, Tachycardia Gastrointestinal: Non Tender, Soft Back: Normal Inspection Extremity: Normal Capillary Refill Neurologic/Psychiatric: Alert, Oriented x3 Skin: Warm/Dry Focused Exam Lactate Level 05/19/19 10:15: Lactic Acid Level 1.90 Lactic Acid Level Laboratory Tests Test 05/19/19 10:15 Lactic Acid Level 1.90 MMOL/L (0.50-2.00) Progress/Results/Core Measures Suspected Sepsis SIRS Temperature: Pulse: Respiratory Rate: Laboratory Tests 05/19/19 10:02: White Blood Count 12.1H Blood Pressure / Mean: 05/19/19 10:15: Lactic Acid Level 1.90 Laboratory Tests 05/19/19 10:02: Creatinine 0.37L, Platelet Count 567H, Total Bilirubin 0.2 Results/Orders Lab Results Laboratory Tests Test 05/19/19 10:02 05/19/19 10:15 Range/Units White Blood Count 12.1 H 4.3-11.0 10^3/uL Red Blood Count 5.22 4.35-5.85 10^6/uL Hemoglobin 15.1 11.5-16.0 G/DL Hematocrit 45 35-52 % Mean Corpuscular Volume 87 80-99 FL Mean Corpuscular Hemoglobin 29 25-34 PG Mean Corpuscular Hemoglobin Concent 33 32-36 G/DL Red Cell Distribution Width 13.7 10.0-14.5 % Platelet Count 567 H 130-400 10^3/uL Mean Platelet Volume 9.6 7.4-10.4 FL Neutrophils (%) (Auto) 49 42-75 % Lymphocytes (%) (Auto) 31 12-44 % Monocytes (%) (Auto) 13 H 0-12 % Eosinophils (%) (Auto) 6 0-10 % Basophils (%) (Auto) 1 0-10 % Neutrophils # (Auto) 5.9 1.8-7.8 X 10^3 Lymphocytes # (Auto) 3.7 1.0-4.0 X 10^3 Monocytes # (Auto) 1.5 H 0.0-1.0 X 10^3 Eosinophils # (Auto) 0.7 H 0.0-0.3 10^3/uL Basophils # (Auto) 0.2 H 0.0-0.1 10^3/uL Activated Partial Thromboplast Time 29 24-35 SEC Sodium Level 137 135-145 MMOL/L Potassium Level 4.2 3.6-5.0 MMOL/L Chloride Level 97 L 98-107 MMOL/L Carbon Dioxide Level 27 21-32 MMOL/L Anion Gap 13 5-14 MMOL/L Blood Urea Nitrogen 6 L 7-18 MG/DL Creatinine 0.37 L 0.60-1.30 MG/DL Estimat Glomerular Filtration Rate > 60 BUN/Creatinine Ratio 16 Glucose Level 131 H 70-105 MG/DL Calcium Level 10.0 8.5-10.1 MG/DL Corrected Calcium 9.8 8.5-10.1 MG/DL Magnesium Level 1.9 1.6-2.4 MG/DL Total Bilirubin 0.2 0.1-1.0 MG/DL Aspartate Amino Transf (AST/SGOT) 38 H 5-34 U/L Alanine Aminotransferase (ALT/SGPT) 63 H 0-55 U/L Alkaline Phosphatase 128 40-136 U/L Pro-B-Type Natriuretic Peptide 38.0 <75.0 PG/ML Total Protein 8.5 H 6.4-8.2 GM/DL Albumin 4.3 3.2-4.5 GM/DL Lactic Acid Level 1.90 0.50-2.00 MMOL/L Micro Results Microbiology 05/19/19 Influenza Types A,B Antigen (PONCHO) - Final, Complete My Orders Orders - OMERO HEATH DO Chest 1 View Ap/Pa Only (05/19/19 09:52) Cbc With Automated Diff (05/19/19 09:52) Comprehensive Metabolic Panel (05/19/19 09:52) Blood Culture (05/19/19 09:52) Lactic Acid Analyzer (05/19/19 09:52) Magnesium (05/19/19 09:52) Partial Thromboplastin Time (05/19/19 09:52) Probnp Fs (05/19/19 09:52) Albuterol/Ipra Inhalation Soln (Duoneb I (05/19/19 10:00) Methylprednisolone Sod Succ (Solu-Medrol (05/19/19 10:00) Svn Small Volume Nebulizer (05/19/19 09:52) Influenza A And B Antigens (05/19/19 09:52) Medications Given in ED Current Medications Medications Dose Ordered Sig/Anna Route Start Time Stop Time Status Last Admin Dose Admin Albuterol/ Ipratropium 3 ml ONCE ONCE INH 05/19/19 10:00 05/19/19 10:06 DC 05/19/19 10:21 3 ML Methylprednisolone Sodium Succinate 125 mg ONCE ONCE IVP 05/19/19 10:00 05/19/19 10:06 DC 05/19/19 10:21 125 MG Vital Signs/I&O 05/19/19 10:09 Temp 36.2 Pulse 119 Resp 17 B/P (MAP) 134/90 (105) Pulse Ox 99 O2 Delivery Room Air Capillary Refill : Progress Note : Progress Note Patient's lung sounds are certainly abnormal with decreased aeration and wheezing crackles. I will check basic labs chest x-ray treat with DuoNeb and steroids and reassess. Thankfully no acute findings have been found on patient's workup at this time. Her repeat lungs sounds are improved with increased aeration. Her chest x-ray appears clear with no signs of recurrent pneumonia and her leukocytosis have improved and is still trending downwards. She feels much better after getting a breathing treatment and her heart rate came down to 105 and her oxygen saturation is staying in the 90% range on her baseline oxygen. Patient says she does not feel as short of breath and feels well and would like to go home. She has oncology follow-up at in [place] tomorrow. I told her I will prescribe her more albuterol nebs as well as prednisone have her follow up tomorrow and come back to the emergency Department sooner with worsening pain shortness of breath fevers or other general concerns. Patient aware and agreeable with plan for discharge and verbalized understanding of the above instructions. Departure Impression Primary Impression: Dyspnea Qualified Codes: R06.02 - Shortness of breath Additional Impression: Bronchospasm Disposition: HOME, SELF-CARE Condition: Stable Departure-Patient Inst. Referrals: GLEN JONAS APRN (PCP) Primary Care Physician NO,LOCAL PHYSICIAN (Family) Primary Care Physician Patient Instructions: Shortness of Breath (Dyspnea) Scripts Prednisone (Prednisone) 20 Mg Tab 40 MG PO DAILY, #8 TAB 0 Refills Prov: OMERO HEATH DO 05/19/19 Albuterol Sulfate (Albuterol Sulfate) 2.5 Mg/3 Ml Vial.neb 2.5 MG INH Q4H PRN for WHEEZING, #50 EA 1 Refill Prov: OMERO HEATH DO 05/19/19 OMERO HEATH DO May 19, 2019 09:52
[2019-05-19] MEDS ORDERED: RT-ALBUTEROL/IPRATROPIUM 3 ML (DUONEB) VIAL INH ONE (10:00)
[2019-05-19] MEDS ORDERED: methylPREDNISolone 125 MG (Solu-MEDROL) VIAL IVP ONE (10:00)
[2019-05-19 10:13] LABS: BASOPHILS % (AUTO) 1 % (0-10); EOSINOPHILS % (AUTO) 6 % (0-10); HEMATOCRIT 45 % (35-52); HEMOGLOBIN 15.1 G/DL (11.5-16.0); LYMPHOCYTES % (AUTO) 31 % (12-44); MEAN CORPUSCULAR HEMOGLOBIN 29 PG (25-34); MEAN CORPUSCULAR HGB CONC 33 G/DL (32-36); MEAN CORPUSCULAR VOLUME 87 FL (80-99); MEAN PLATELET VOLUME 9.6 FL (7.4-10.4); MONOCYTES % (AUTO) 13 % (0-12); NEUTROPHILS # (AUTO) 5.9 X 10^3 (1.8-7.8); NEUTROPHILS % (AUTO) 49 % (42-75); PLATELET COUNT 567 10^3/uL (130-400); RED CELL DISTRIBUTION WIDTH 13.7 % (10.0-14.5); WHITE BLOOD COUNT 12.1 10^3/uL (4.3-11.0)
[2019-05-19 10:14] LABS: BASOPHILS # (AUTO) 0.2 10^3/uL (0.0-0.1); EOSINOPHILS # (AUTO) 0.7 10^3/uL (0.0-0.3); LYMPHOCYTES # (AUTO) 3.7 X 10^3 (1.0-4.0); MONOCYTES # (AUTO) 1.5 X 10^3 (0.0-1.0)
[2019-05-19 10:41] LABS: ALANINE AMINOTRANSFERASE 63 U/L (0-55); ALKALINE PHOSPHATASE 128 U/L (40-136); BILIRUBIN,TOTAL 0.2 MG/DL (0.1-1.0); BUN/CREATININE RATIO 16; CARBON DIOXIDE 27 MMOL/L (21-32); CHLORIDE 97 MMOL/L (98-107); CREATININE SERUM 0.37 MG/DL (0.60-1.30); GFR ESTIMATED > 60; GLUCOSE 131 MG/DL (70-105); MAGNESIUM 1.9 MG/DL (1.6-2.4); POTASSIUM 4.2 MMOL/L (3.6-5.0); SODIUM 137 MMOL/L (135-145)
[2019-05-19 10:42] LABS: ALBUMIN 4.3 GM/DL (3.2-4.5); TOTAL PROTEIN 8.5 GM/DL (6.4-8.2)
--- NOTE | 2019-05-19 10:45 | Diagnostic Imaging Report ---
Indication: Shortness of breath. Time of exam 10:08 AM Correlation is made with prior chest from 04/30/2019. The heart size is stable. Lungs appear to be clear. No infiltrates are seen. No effusion or pneumothorax is detected. IMPRESSION: No acute cardiopulmonary process is detected. Dictated by: Dictated on workstation # [id number]
[2019-05-19] MEDS ORDERED: PRD20T PO (11:00)
[2019-05-19] MEDS ORDERED: ALBU2.5V4 INH (11:00)
[2019-05-19 11:10] VITALS: BP 132/86
== END 2019-05-19 11:03 | disposition home or self-care (01) ==
LOC: EDUNIT# 09:39 → ER FS 09:40
DX: J98.01 Acute bronchospasm (principal); I10 Essential (primary) hypertension; K21.9 Gastro-esophageal reflux disease without esophagitis; F41.9 Anxiety disorder, unspecified; F32.9 Major depressive disorder, single episode, unspecified; Z88.8 Allergy status to other drugs, medicaments and biological substances; Z85.6 Personal history of leukemia
CPT/HCPCS: 36415; 71045; 80053; 83605; 83735; 83880; 85025; 85730; 87040; 87804

== ENCOUNTER → 2019-05-31 | Outpatient (CLI) | payer MEDICAID ==
[~2019-05-31] MED LIST changes: +ALBU2.5V4 INH; +PRD20T PO; +RT-ALBUTEROL SULF 2.5 MG/3 ML PRE-MIX VIAL INH ONE
== END ==
LOC: RT 09:30
PROVIDERS: ATTEND Internal Medicine Hematology & Oncology
DX: Z94.84 Stem cells transplant status (principal)
CPT/HCPCS: 94060; 94726; 94729

== ENCOUNTER 2019-06-05 04:28 | Emergency (ER) | payer MEDICAID ==
[~2019-06-05] VITALS: Ht 152.4 cm; Wt 55.1 kg
[~2019-06-05 04:28] MED LIST changes: -RT-ALBUTEROL SULF 2.5 MG/3 ML PRE-MIX VIAL INH ONE
--- NOTE | 2019-06-05 05:03 | ED Upper Extremity ---
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 Eyes fevers or chills or vomiting Onset: this morning Pain/Injury Location: right wrist Method of Injury: unknown Modifying Factors: Improves With Jarring, Improves With Movement Allergies and Home Medications Allergies Uncoded Allergies: CHEMO MEDS (Allergy, Unknown, 08/30/18) Home Medications Albuterol Sulfate 2.5 Mg/3 Ml Vial.neb, 2.5 MG INH Q4H PRN for WHEEZING Prescribed by: OMERO HEATH on 05/19/19 1100 Alendronate Sodium 70 Mg Tablet, 70 MG PO WEEK, (Reported) Amitriptyline HCl 25 Mg Tablet, 50 MG PO HS, (Reported) TAKES 2 (25MG) TABLETS Cefdinir 300 Mg Capsule, 300 MG PO BID Prescribed by: ANGELY TRIPATHI on 05/02/19 1316 Duloxetine HCl 60 Mg Capsule.dr, 60 MG PO DAILY, (Reported) Hydroxypropyl Cellulose 5 Mg Insert, 5 MG OU DAILY, (Reported) Labetalol HCl 100 Mg Tablet, 100 MG PO BID, (Reported) Lorazepam 1 Mg Tablet, 1 MG PO DAILY PRN for ANXIETY, (Reported) Losartan Potassium 100 Mg Tablet, 100 MG PO DAILY, (Reported) Mirtazapine 15 Mg Tablet, 15 MG PO HS, (Reported) Ondansetron HCl 8 Mg Tablet, 8 MG PO Q8H PRN for NAUSEA/VOMITING-1ST LINE, (Reported) Oxycodone HCl 10 Mg Tab.er.12h, 10 MG PO BID PRN for PAIN-SEVERE (8-10), (Reported) Pantoprazole Sodium 40 Mg Tablet.dr, 40 MG PO DAILY, (Reported) Prednisone 20 Mg Tab, 40 MG PO DAILY Prescribed by: OMERO HEATH on 05/19/19 1100 Pregabalin 75 Mg Capsule, 75 MG PO BID, (Reported) Ropinirole HCl 1 Mg Tablet, 1 MG PO HS, (Reported) Tizanidine HCl 2 Mg Tablet, 2 MG PO BID PRN for MUSCLE SPASMS, (Reported) Zolpidem Tartrate 10 Mg Tablet, 10 MG PO HS, (Reported) Patient Home Medication List Home Medication List Reviewed: Yes Review of Systems Constitutional: no symptoms reported; No fever EENTM: no symptoms reported Respiratory: cough, short of breath Cardiovascular: no symptoms reported Genitourinary: no symptoms reported : No Musculoskeletal: see HPI Skin: change in color, dryness, lesions, rash Psychiatric/Neurological: No Symptoms Reported Past Fdkblfb-Ltdebn-Frhwpk Hx Patient Social History 2nd Hand Smoke Exposure: No Recent Foreign Travel: No Contact w/Someone Who Travel: No Recent Hopitalizations: No Immunizations Up To Date Date of Pneumonia Vaccine: Apr 29, 2014 Date of Influenza Vaccine: Jan 27, 2019 Seasonal Allergies Seasonal Allergies: No Past Medical History Surgeries: Yes (BREAST) Respiratory: Yes (Uses Home O2) Cardiac: Yes Hypertension, Irregular Heartbeat Neurological: No Genitourinary: No Gastrointestinal: No Gastroesophageal Reflux Musculoskeletal: Yes (Restless leg syndrome) Foot Drop, Contracture Endocrine: No HEENT: No Cancer: Yes Leukemia (AML in remission since 2012. By fheuc-llllro-qasb disease that is severe) Psychosocial: Yes Sleep Difficulties, Anxiety, Depression Integumentary: No Blood Disorders: No Physical Exam Vital Signs Vital Signs - First Documented Capillary Refill : Height, Weight, BMI Height: 5'4.00" Weight: 128lbs. oz. 58.401653nj; 24.00 BMI Method:Stated General Appearance: no apparent distress, cachetic, thin HEENT: PERRL/EOMI, normal ENT inspection Neck: non-tender, supple Cardiovascular: normal peripheral pulses, tachycardia Respiratory: chest non-tender, decreased breath sounds Gastrointestinal: normal bowel sounds, non tender Back: normal inspection, no CVA tenderness Wrist: Yes nodules, Yes pain, Yes soft tissue tenderness, Yes swelling Hand: soft tissue tenderness, stiffness, swelling Neurologic/Psychiatric: human resource officer II-XII nml as tested, no motor/sensory deficits Skin: other (skin is diffusely thickened with induration of the subcutaneous tissue diffuse throughout her body she has erythema on the left lateral chest wall is also warm to touch with some open skin wounds) Lymphatic: no adenopathy Progress/Results/Core Measures Results/Orders Lab Results Laboratory Tests Test 06/05/19 05:04 06/05/19 06:53 Range/Units White Blood Count 16.8 H 4.3-11.0 10^3/uL Red Blood Count 4.75 4.35-5.85 10^6/uL Hemoglobin 13.7 11.5-16.0 G/DL Hematocrit 41 35-52 % Mean Corpuscular Volume 86 80-99 FL Mean Corpuscular Hemoglobin 29 25-34 PG Mean Corpuscular Hemoglobin Concent 34 32-36 G/DL Red Cell Distribution Width 14.6 H 10.0-14.5 % Platelet Count 451 H 130-400 10^3/uL Mean Platelet Volume 9.5 7.4-10.4 FL Neutrophils (%) (Auto) 64 42-75 % Lymphocytes (%) (Auto) 20 12-44 % Monocytes (%) (Auto) 14 H 0-12 % Eosinophils (%) (Auto) 2 0-10 % Basophils (%) (Auto) 1 0-10 % Neutrophils # (Auto) 10.7 H 1.8-7.8 X 10^3 Lymphocytes # (Auto) 3.4 1.0-4.0 X 10^3 Monocytes # (Auto) 2.3 H 0.0-1.0 X 10^3 Eosinophils # (Auto) 0.3 0.0-0.3 10^3/uL Basophils # (Auto) 0.2 H 0.0-0.1 10^3/uL Neutrophils % (Manual) 71 % Lymphocytes % (Manual) 9 % Monocytes % (Manual) 11 % Eosinophils % (Manual) 2 % Band Neutrophils 1 % Reactive Lymphocytes 6 % Platelet Estimate INCREASED Microcytosis MODERATE Prothrombin Time 13.5 12.2-14.7 SEC INR Comment 1.0 0.8-1.4 Activated Partial Thromboplast Time 30 24-35 SEC Sodium Level 132 L 135-145 MMOL/L Potassium Level 3.9 3.6-5.0 MMOL/L Chloride Level 93 L 98-107 MMOL/L Carbon Dioxide Level 26 21-32 MMOL/L Anion Gap 13 5-14 MMOL/L Blood Urea Nitrogen 4 L 7-18 MG/DL Creatinine 0.37 L 0.60-1.30 MG/DL Estimat Glomerular Filtration Rate > 60 BUN/Creatinine Ratio 11 Glucose Level 148 H 70-105 MG/DL Lactic Acid Level 1.14 0.50-2.00 MMOL/L Calcium Level 9.7 8.5-10.1 MG/DL Corrected Calcium 9.7 8.5-10.1 MG/DL Total Bilirubin 0.5 0.1-1.0 MG/DL Aspartate Amino Transf (AST/SGOT) 34 5-34 U/L Alanine Aminotransferase (ALT/SGPT) 65 H 0-55 U/L Alkaline Phosphatase 88 40-136 U/L Total Protein 8.1 6.4-8.2 GM/DL Albumin 4.0 3.2-4.5 GM/DL Urine Color YELLOW Urine Clarity CLEAR Urine pH 7.0 5-9 Urine Specific [place] <=1.005 1.016-1.022 Urine Protein NEGATIVE NEGATIVE Urine Glucose (UA) NEGATIVE NEGATIVE Urine Ketones NEGATIVE NEGATIVE Urine Nitrite NEGATIVE NEGATIVE Urine Bilirubin NEGATIVE NEGATIVE Urine Urobilinogen 0.2 < = 1.0 MG/DL Urine Leukocyte Esterase NEGATIVE NEGATIVE Urine RBC (Auto) NEGATIVE NEGATIVE Urine RBC NONE /HPF Urine WBC 0-2 /HPF Urine Squamous Epithelial Cells 10-25 H /HPF Urine Crystals NONE /LPF Urine Bacteria FEW H /HPF Urine Casts NONE /LPF Urine Mucus NEGATIVE /LPF Urine Culture Indicated NO My Orders Orders - SAPPHIREADI B DO Cbc With Automated Diff (06/05/19 05:04) Comprehensive Metabolic Panel (06/05/19 05:04) Blood Culture (06/05/19 05:04) Sputum Culture (06/05/19 05:04) Urinalysis (06/05/19 05:04) Urine Culture (06/05/19 05:04) Protime With Inr (06/05/19 05:04) Partial Thromboplastin Time (06/05/19 05:04) Chest 1 View Ap/Pa Only (06/05/19 05:04) Ed Iv/Invasive Line Start (06/05/19 05:04) Vital Signs Adult Sepsis Patie Q15M (06/05/19 05:04) O2 (06/05/19 05:04) Remove Rings In Anticipation O (06/05/19 05:04) Lactic Acid Analyzer (06/05/19 05:04) Lactated Ringers (Lr 1000 Ml Iv Solution (06/05/19 05:15) Cefazolin Injection (Ancef Injection) (06/05/19 05:15) Vancomycin Injection (Vancomycin Injecti (06/05/19 05:15) Wrist 2 View Right (06/05/19 05:09) Manual Differential (06/05/19 05:04) Morphine Injection (Morphine Injection (06/05/19 06:08) Morphine Injection (Morphine Injection (06/05/19 07:35) Medications Given in ED Current Medications Medications Dose Ordered Sig/Anna Route Start Time Stop Time Status Last Admin Dose Admin Cefazolin Sodium 1000 mg/Sterile Water 10 ml @ 200 mls/hr ONCE ONCE IV 06/05/19 05:15 06/05/19 05:17 DC 06/05/19 06:09 200 MLS/HR Lactated Ringer's 1,653 ml @ 1,653 mls/hr PRN PRN IV 06/05/19 05:15 06/05/19 05:58 1,653 MLS/HR Vancomycin HCl 1000 mg/Sodium Chloride 250 ml @ 250 mls/hr ONCE ONCE IV 06/05/19 05:15 06/05/19 06:14 DC 06/05/19 06:09 250 MLS/HR Vital Signs/I&O 06/05/19 06/05/19 04:33 04:33 Temp 38.0 Pulse 147 Resp 14 B/P (MAP) 133/93 (106) Pulse Ox 94 O2 Delivery Nasal Cannula Nasal Cannula O2 Flow Rate 2.00 2.00 Progress Progress Note : Progress Note Patient presents with cellulitis on the left chest wall is not been treated for the last 2 days now she has right wrist pain although there is no erythema of the wrist there is no palpable joint effusion given her marked tachycardia her immune compromised certainly concerned about sepsis either from her skin most likely because of the open wounds and no warmth to palpation she may indeed have a septic joint of the right wrist had itself has diffuse edema without erythema as well. 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 Shoulder decision-making with the patient she declined to be admitted initially although she admitted she understood and the need for she has children that she must care for and was quite adamant that she did not want to be admitted at this time. I told her we would start the initial evaluation given the IV antibiotics and fluids and resistance after a period of time as gone by and we checked her labs 0600 reviewed labs with patient discussed importance of aggressive treatment of her sepsis syndrome with IV antibiotics fluids patient finally agreed to receive fluids and antibiotics wrist x-ray did not show any tissue planes or evidence of joint effusion grossly I don't find on physical exam but I still am suspect that there may be a tenosynovitis this is very difficult to assess due to her skin changes from her most versus graft disease. Nonetheless I's and shortly have suggested her that she requires admission the hospital after making some phone calls and further discussion the patient has agreed that we can give her the a ntibiotics fluids and has requested that we contact her hemolytic doctors at . I initiated the transfer line presented the case to triage nurse and I'm awaiting callback for acceptance of the patient in transfer. Reevaluation her blood pressure is stable her sats are stable she is comfortable still quite tachycardic in the 130s and fluids and antibiotics are infusing Departure Impression Primary Impression: Sepsis Qualified Codes: A41.9 - Sepsis, unspecified organism Additional Impressions: Cellulitis Wrist disorder Disposition: XFER SHT-TRM HOSP Condition: Stable Transfer Transfer Reason: Exceeds level of care Transfer Progress Notes Patient has signs and symptoms of sepsis manifested by fever and tachycardia elevated white count and an active infection on her left chest wall with post immune problems including mztkx-ikiegu-innt disease from her bone marrow transplant. Hemodynamically other than the tachycardia she is stable she's been given fluids antibiotics cultured and arrangements have been made to transfer her to [facility] facility of her preference and request Transfer Time: 06:31 Transfer Facility: [facility] Accepts to Dr. Castorena. Method of Transfer: EMS Departure-Patient Inst. Referrals: [facility]/ (PCP) Primary Care Physician GLEN JONAS APRN (Family) Primary Care Physician ADI LEARY DO Jun 05, 2019 05:03
[2019-06-05 05:15] LABS: BASOPHILS # (AUTO) 0.2 10^3/uL (0.0-0.1); BASOPHILS % (AUTO) 1 % (0-10); EOSINOPHILS # (AUTO) 0.3 10^3/uL (0.0-0.3); EOSINOPHILS % (AUTO) 2 % (0-10); HEMATOCRIT 41 % (35-52); HEMOGLOBIN 13.7 G/DL (11.5-16.0); LYMPHOCYTES # (AUTO) 3.4 X 10^3 (1.0-4.0); LYMPHOCYTES % (AUTO) 20 % (12-44); MEAN CORPUSCULAR HEMOGLOBIN 29 PG (25-34); MEAN CORPUSCULAR HGB CONC 34 G/DL (32-36); MEAN CORPUSCULAR VOLUME 86 FL (80-99); MEAN PLATELET VOLUME 9.5 FL (7.4-10.4); MONOCYTES # (AUTO) 2.3 X 10^3 (0.0-1.0); MONOCYTES % (AUTO) 14 % (0-12); NEUTROPHILS # (AUTO) 10.7 X 10^3 (1.8-7.8); NEUTROPHILS % (AUTO) 64 % (42-75); PLATELET COUNT 451 10^3/uL (130-400); RED CELL DISTRIBUTION WIDTH 14.6 % (10.0-14.5); WHITE BLOOD COUNT 16.8 10^3/uL (4.3-11.0)
[2019-06-05] MEDS ORDERED: LACTATED RINGERS IV PRN (05:15)
[2019-06-05] MEDS ORDERED: VANCOMYCIN INJECTION 1,000 MG in NS (IVPB) 250 ML IV ONE (05:15)
[2019-06-05] MEDS ORDERED: ceFAZolin INJECTION 1,000 MG in WATER (STERILE) FOR INJECTION 10 ML IV ONE (05:15)
[2019-06-05 05:26] LABS: PROTHROMBIN TIME PATIENT 13.5 SEC (12.2-14.7)
--- NOTE | 2019-06-05 05:29 | NUR ---
This RN went into the room to start the fluid for sepsis protocol. This RN explains that the doctor would like to remove her ring on the effected hand due to swelling. Patient is tearful and states "I think you guys are being over dramatic about this. I was just at the doctor 2 days ago and had a check up. My heart rate normally runs in the 150's to 160's". This RN tells the patient that all of her labs are not back but her WBC was over 16. This RN also encourages treatment doctor prescribes but also states that she cannot be forced to accept any treatment she doesn't want. Patient states that she would like to make a phone call and think about her options.
[2019-06-05 05:37] LABS: ALANINE AMINOTRANSFERASE 65 U/L (0-55); ALKALINE PHOSPHATASE 88 U/L (40-136); BILIRUBIN,TOTAL 0.5 MG/DL (0.1-1.0); BUN/CREATININE RATIO 11; CALCIUM 9.7 MG/DL (8.5-10.1); CARBON DIOXIDE 26 MMOL/L (21-32); CHLORIDE 93 MMOL/L (98-107); CREATININE SERUM 0.37 MG/DL (0.60-1.30); GFR ESTIMATED > 60; GLUCOSE 148 MG/DL (70-105); POTASSIUM 3.9 MMOL/L (3.6-5.0); SODIUM 132 MMOL/L (135-145); TOTAL PROTEIN 8.1 GM/DL (6.4-8.2)
[2019-06-05 05:38] LABS: BAND NEUTROPHILS 1 %; EOSINOPHILS % (MANUAL) 2 %; LYMPHOCYTES % (MANUAL) 9 %; MICROCYTOSIS MODERATE; MONOCYTES % (MANUAL) 11 %; NEUTROPHILS % (MANUAL) 71 %; PLATELET ESTIMATE INCREASED; REACTIVE LYMPHOCYTES 6 %
--- NOTE | 2019-06-05 06:04 | Diagnostic Imaging Report ---
INDICATION: Right wrist pain TECHNIQUE: 3 views of the right wrist CORRELATION STUDY: None FINDINGS: The osseous structures of the wrist have an unremarkable appearance. Alignment is anatomic. There is no acute bony abnormality. The visualized soft tissues appearing unremarkable. IMPRESSION: 1. Negative examination of the wrist. Dictated by: Dictated on workstation # [id number]
--- NOTE | 2019-06-05 06:07 | Diagnostic Imaging Report ---
INDICATION: Fever, tachycardia. TECHNIQUE: Single view chest 5:14 AM. CORRELATION STUDY: 05/19/2019 FINDINGS: The heart size, mediastinal configuration and pulmonary vascularity are within normal limits. Increased density at both lung bases likely largely attributed to overlapping summation shadows, perhaps breast implants. There is, however, slight increased density particularly at the lung bases with areas of infiltrate not excluded. Slight asymmetric areas of linear scarlike formation about the right upper lobe. Upper lobe partially obscured by overlying monitor leads. IMPRESSION: 1. Suspect for potential infiltrates at both lung bases, right greater than left. However, x-rays are somewhat obscured by overlying summation shadows. If symptoms persist, short-term follow-up repeat imaging to include lateral views would be recommended. Dictated by: Dictated on workstation # [id number]
[2019-06-05] MEDS ORDERED: morphine INJ 10 MG/ML 1ML (SYR OR VIAL) IVP STA ×4 (06:08→13:28)
[2019-06-05 07:05] LABS: CLARITY,URINE CLEAR; COLOR,URINE YELLOW
[2019-06-05 07:06] LABS: BACTERIA,URINE FEW /HPF; BILIRUBIN,URINE NEGATIVE (NEGATIVE); GLUCOSE, URINE (UA) NEGATIVE (NEGATIVE); KETONES,URINE NEGATIVE (NEGATIVE); LEUKOCYTE ESTERASE ,URINE NEGATIVE (NEGATIVE); NITRITE,URINE NEGATIVE (NEGATIVE); PROTEIN,URINE NEGATIVE (NEGATIVE); WBC,URINE 0-2 /HPF
--- NOTE | 2019-06-05 11:15 | NUR ---
Call to [facility], transferreed twiced and reached "Juno" a testing coordinator. Pt has been at least 4.5 hr waiting since transfer acceptance and still no bed given. Juno was updated the free standing ER is without resources of cafeteria and numerous other amenties to create more comfortable environment i.e. patient bed. Pt family is inquiring also related to extensive delay time. [place] [facility] is just merely trying to satisfy pt/family experience and trying to expediate transfer. Juno replied he was not aware this is not a hospital at [place]. The coordinator is going to speak with Med/Onc group to see if temporary site can be assisgned as awaiting any discharge from "[address]" that is preferred. Pt's diagnosis requires specific location to be placed.
[2019-06-05 13:50] VITALS: BP 127/84
== END 2019-06-05 13:50 | disposition short-term general hospital (02) ==
LOC: EDUNIT# 04:28 → ER FS 04:30
DX: A41.9 Sepsis, unspecified organism (principal); L03.313 Cellulitis of chest wall; M25.831 Other specified joint disorders, right wrist; I10 Essential (primary) hypertension; K21.9 Gastro-esophageal reflux disease without esophagitis; F41.9 Anxiety disorder, unspecified; F32.9 Major depressive disorder, single episode, unspecified; Z88.8 Allergy status to other drugs, medicaments and biological substances; Z85.6 Personal history of leukemia
CPT/HCPCS: 36415; 71045; 73100; 80053; 81000; 83605; 85007; 85027; 85610; 85730; 87040; 87088; 96361; 96365; 96375; 96376